=== PATIENT | female | born 1950 | race Caucasian/White ===

== ENCOUNTER 2022-05-07 13:00 | Outpatient (RCR) | payer MEDICARE, OTHER, SELFPAY ==
--- OUTSIDE RECORDS SUMMARY | 2022-04-03 11:13 | XMS_ITS | Continuity of Care Document ---
:1950 Author Care Team Providers Name Role Phone MD Mario Attending Physician MD Quinn A Primary Care Physician Allergies, Adverse Reactions, Alerts Allergen Type Severity Reaction Last Updated Verified Status Hydrocodone Allergy Mild Stomach August No Active probs 2020 Social History Smoking Status Status Start Date End Date Date of Observat ion Ex-smoker (finding) March 03 8:35am Observation Status Observation Response Date of Response History provided by Patient September 05, 2021 1:30pm Where do you live? Own home/apt September 05, 2021 1:30pm Additional Data Assigned Sex Female Problems Active Problems Medical Problem Onset Date Status Atrial fibrillation with rapid Active ventricular response Alteration in vision Active Elevated INR Active Appendicitis, acute Active Paroxysmal atrial fibrillation Active Thyroid dysfunction Active Perforated appendicitis Active Hypothyroidism Active Encounter for screening for COVID-19 Act juan a Breast cancer 2021 Active Encounter for screening for COVID-19 Act juan a Status post appendectomy Active S/P laparoscopic appendectomy Active Medications Medication Status Dose Units Route Directions Qty Days Start End Ins tructions Date Date Acetaminophen Active 500-1 MG PO Every 6 100 NO MORE THAN (Tylenol 000 Hours as 4000 MG/ DAY Extra needed Strength) 500 Mg TAB Bupropion Hcl Active 150 MG PO Daily 90 (Bupropion Hcl Sr (12 Hr)) 150 Mg TABSR Calcium/Vitam Active 1 TAB PO Twice A Day 100 in D (Calcium Carbonate/Vit schuster D) 600 Mg/200 Unit TAB Levothyroxine Active 100 MCG PO Daily Sodium Magic Active 5 ML PO Four Times March SWISH AN D SPIT Mouthwash Daily as February COM POUND IF FIRST PRODUCT NOT COVERED (Lidocaine/Be needed 2021 nadryl/Maalox 1:19pm ) (First-Mouthw concepción Blm) Blm SUSANNE Metoprolol Active 50 MG PO Twice A Day March Tartrate 2021 12:16pm Multiple Active 1 TAB PO Daily Vitamins W/ Minerals (Multivitamin ) 1 Tab TAB Ondansetron Active 4 MG PO Every 6 8 February Hcl Hours as , (Ondansetron needed 2021 Odt) 4 Mg TAB 12:54pm Pantoprazole Active 40 MG PO Daily 30 Sodium (Protonix) 40 Mg TABEC Prochlorperaz Active 10 MG PO Every 8-12 09 March PRN ine Maleate Hours as 4th, Nause a/vomiti needed for 2021 ng Nausea/Vomi 11:29am ting Rivaroxaban Active 20 MG PO Daily WITH MEAL (Xarelto) r , Mg TAB 2020 4:14pm Simvastatin Active 20 MG PO Bedtime June 03, 2015 5:06pm Tramadol Hcl Active 50 MG PO Every 6 30 Hours as needed Zinc Sulfate Active 220 MG PO Daily 100 (Zinc Sulfate (50 Mg Elemental)) 220 Mg CAP Amoxicillin/C Discontin 1 TAB PO Twice Daily lavulanate ued For 7 Days , Potassium 2021 (Amoxicillin 12:16p & Pot m Clavulanate) 875 Mg/125 Mg TAB Amoxicillin/C Discontin 1 TAB PO Twice Daily February lavulanate ued For 7 Days r , 4th, Potassium 2020 2021 (Amoxicillin 2:05pm 10:02a & Pot m Clavulanate) 875 Mg/125 Mg TAB Aspirin Discontin 81 MG OR Novemb (Ecotrin Low ued er Strength) 81 26th, Mg TAB 2020 3:45pm Atenolol Discontin 25 MG PO Three Times Novemb ued A Day er 2020 4:21pm Atenolol & Discontin 1 TAB PO Daily Chlorthalidon ued r , er e 2014, (Atenolol/Chl 3:17pm 2020 orthalidone 3:32pm 100/25) 1 Tab TAB Diltiazem Hcl Discontin 120 MG PO Daily January (Dilt-Xr) 120 ued r , , Mg CAPCR 2020 2021 4:14pm 9:07am Diphtheria/Te Discontin 0.5 ML IM Once January tanus/Acell ued , 17, Pertussis 2014 2014 (Adacel) 0.5 11:35am 12:15p Ml INJ m Flecainide Discontin 50 MG PO Twice A Day May em Acetate ued 2014, 5:15pm 2019 8:19am Hydrocortison Discontin 1 CHRISTY TOP Twice A Day May N ovemb e ued , er (Hydrocortiso 2014, ne Cream) 2.5 11:33am 2020 % CRE 3:23pm Hydroxyzine Discontin 25-50 MG PO Bedtime as May em Pamoate ued needed 2014, 11:33am 2019 8:19am Levothyroxine Discontin 112 MCG PO Daily 30 Novemb Sodium ued er (Synthroid) , 112 Mcg TAB 2020 3:30pm Metoprolol Discontin 100 MG PO Twice A Day 60 February may take an extra 50mg if sustained HR is 120 for more than Tartrate ued , 14th, an hour 2021 2021 10:02am 12:16p m Metoprolol Discontin 50 MG PO Twice A Day 60 Novemfebruary may take an extra 50mg if sustained HR is 120 for more than Tartrate ued r 30th, 4th, an hour 2020 2021 4:14pm 10:02a m Potassium Discontin 25 MEQ PO Twice Daily 60 Novembe Apri l Bicarbonate ued With Meals r 30, , (Effer-K) 25 2020 2021 Meq TAB 4:14pm 8:19am Tramadol Hcl Discontin 50 MG PO Every 6 January ued Hours as , , needed 2021 2021 9:03am 12:56p m Tramadol Hcl Discontin 50 MG PO Every 6 January ued Hours as r 30, , needed 2020 2021 6:15pm 8:19am Warfarin Discontin 5 MG PO Every Novemb Sodium ued Wednesday, er Wednesday, , , 2020 And 4:14pm Wednesday Warfarin Discontin 7.5 MG PO Every 30 Novemb Sodium ued Wednesday, er Wednesday, , And Wednesday 4:14pm Immunizations Immunization Event Date Not Given Dose Efficiency Clerk Lot Vac cine Reason Number Number Informatio n Statement (VIS) Deta il Herpes Zoster September 132011 Influenza June 112008 Influenza July 292017 Influenza July 212020 Prevnar Adult December 222015 Pneumovax Adult March 172016 Tdap January 25 SANOFI [id number] (adolescent/adul 2015 t) Medical Equipment Device Date Implanted Device Details TECNIS IOL July 03, 2020 MONTRELL: [id number] Issuing Agency: [facility] Device Id: [id number] Expiration Date: 12-18-25 Serial Number: [id number] PowerPort M.R.I. Implantable March 03, 2022 MONTRELL: [id number] Issuing Agency: [facility] Device Id: [id number] Expiration Date: 12-12-29 Lot Number: [id number] Relevant Diagnostic Tests and/or Laboratory Data Laboratory Results Test Date/Time Result Interpretation Reference Result Comment Performing Range Site White Blood March 24, 6.23 5.00-10.00 [facility] Count 2021 [address] [facility] 12:10pm [place] [address] Red Blood Count March 24, 4.33 3.90-5.03 [facility] 2021 [address] [facility] 12:10pm [facility] [address] Hemoglobin March 24, 12.7 12.0-15.5 [facility] 2021 [address] [facility] 12:10pm [place] [address] Hematocrit March 24, 38.8 34.9-44.5 [facility] Lab 2021 [address] [facility] 12:10pm [place] [address] Mean March 24, 90 82-98 [facility] Corpuscular 2021 [address] [facility] Volume 12:10pm [place] [address] Mean March 24, 29 27-34 [facility] Corpuscular 2021 [address] [facility] Hemoglobin 12:10pm [place] [address] Mean March 24, 33 32-36 [facility] Corpuscular 2021 [address] [facility] Hemoglobin 12:10pm [place] [address] Concent Platelet Count March 24, 512 150-450 [facility] 2021 [address] [facility] 12:10pm [facility] [address] RDW Coefficient March 24, 14.4 11.5-15.3 [facility] Variation 2021 [facility] [place] [address] Neutrophils (%) March 24, 60.4 50.0-70.0 [facility] (Auto) 2021 [address] [facility] 12:10pm [place] [address] Lymphocytes (%) March 24, 26.5 25.0-45.0 [facility] (Auto) 2021 [address] [facility] 12:10pm [place] [address] Monocytes (%) March 24, 10.8 0.00-11.0 [facility] (Auto) 2021 [address] [facility] 12:10pm [place] [address] Eosinophils (%) March 24, 0.8 0.0-7.0 [facility] (Auto) 2021 [address] [facility] 12:10pm [place] [address] Basophils (%) March 24, 1.3 0.0-3.0 [facility] (Auto) 2021 [address] [facility] 12:10pm [place] [address] Immature March 24, 0.2 [facility] Granulocyte % 2021 [address] [facility] (Auto) 12:10pm [facility] [address] Neutrophils # March 24, 3.77 1.70-7.00 [facility] (Auto) 2021 [address] [facility] 12:10pm [facility] [address] Lymphocytes # March 24, 1.65 0.90-2.90 [facility] (Auto) 2021 [address] [facility] 12:10pm [place] [address] Monocytes # March 24, 0.67 0.30-0.90 [facility] (Auto) 2021 [address] [facility] 12:10pm [place] [address] Eosinophils # March 24, 0.05 0.00-0.50 [facility] (Auto) 2021 [address] [facility] 12:10pm [place] [address] Basophils # March 24, 0.08 0.00-0.20 [facility] (Auto) 2021 [address] [facility] 12:10pm [place] [address] Immature March 24, 0.01 [facility] Granulocyte # 2021 [address] [facility] (Auto) 12:10pm [facility] [address] Random Glucose March 24, 91 60-115 [facility] 2021 [address] [facility] 12:10pm [place] [address] Blood Urea March 24, 16 7-30 [facility] Nitrogen 2021 [address] [facility] 12:10pm [facility] [address] Creatinine March 24, 0.8 0.5-1.5 [facility] 2021 [address] [facility] 12:10pm [place] [address] Estimated March 24, 53.3358 [facility] Creatinine 2021 0 [address] [facility] 12:10pm [facility] [address] Sodium Level March 24, 139 135-149 [facility] 2021 [address] [facility] 12:10pm [facility] [address] Potassium Level March 24, 4.1 3.6-5.1 [facility] 2021 [address] [facility] 12:10pm [facility] [address] Chloride Level March 24, 103 96-114 [facility] 2021 [address] [facility] 12:10pm [facility] [address] Carbon Dioxide March 24, 28 20-32 [facility] Level 2021 [address] [facility] 12:10pm [facility] [address] Calcium Level March 24, 9.0 8.4-10.6 [facility] 2021 [address] [facility] 12:10pm [facility] [address] Total Protein March 24, 7.1 6.0-8.3 The use of [facility] 2021 Eltrombopag, a [address] [facility] 12:10pm [place] [address] stimulant used to treat thrombocytopenia and aplastic anemia, interferes with this measurement of total protein. A 5% bias has been observed. Albumin March 24, 4.3 3.3-5.0 [facility] 2021 [address] [facility] 12:10pm [facility] [address] Total Bilirubin March 24, 0.7 0.1-1.5 [facility] 2021 [address] [facility] 12:10pm [facility] [address] Aspartate Amino March 24, 26 12-35 [facility] Transf 2021 [address] [facility] (AST/SGOT) 12:10pm [facility] [address] Alanine March 24 4-35 [facility] Aminotransferas 2021 [address] [facility] e (ALT/SGPT) 12:10pm [facility] [address] Alkaline March 24 40-150 [facility] Phosphatase 2021 [address] [facility] 12:10pm [facility] [address] Advance Directives Advance Directive Response Recorded Date/Time Does Pt have Health Care No July 17 9:48am Directive? Has patient completed a Yes March 03, 2022 8 :35am Health Care Directive? Insurance Providers Guarantor Phan Caban Address [address] [facility] [address] Contact Info. Home Phone: Payer Policy Id Coverage Id Subscriber's Subscriber Id Effective E xpiration Name Date Date Medicare [id number] Phan Caban [employer] [id number] Phan Caban Solution Plan Encounters Encounter Location(s) Arrival/Admit Date Discharge/Depart Date Provider(s) Registered [place] March 25, 2022 [facility] 6:53am Plan of Treatment Future Tests Future scheduled test information is unavailable Pending Tests Pending diagnostic test information is unavailable Future Visits Future appointment information is unavailable Referrals to Other Providers Reason for Referral Start Provider Provider Contact Provider Address Referral Date Information Pato Bingham Work Phone: AMNA DUDLEY [facility] [address] [facility] [phone] Future Procedures Future procedure information is unavailable Future Medications Future medication information is unavailable Patient Instructions Metoprolol (By mouth) Diltiazem (By mouth) Amoxicillin/Clavulanate Potassium (By [facility]) Tramadol (By mouth) Potassium Bicarbonate/Citric Acid (By [facility]) Rivaroxaban (By mouth) (Xarelto, Xarelto Starter Pack) A-fib (Atrial Fibrillation) (DC) Laparoscopic Appendectomy (DC)
[2022-04-15 08:20] LABS: Basophils Absolute Auto 0.07 K/uL (0.00-0.30); Basophils Percent Auto 1.3 % (0.0-3.0); Eosinophils Absolute Auto 0.06 K/uL (0.00-0.50); Eosinophils Percent Auto 1.1 % (0.0-7.0); Hematocrit 36.1 % (33.0-51.0); Hemoglobin* 11.7 gm/dL (12.0-16.0); Immature Granulocytes Abs Auto 0.01 K/uL (0.00-0.30); Lymphocytes Percent Auto 19.6 % (20-44); Mean Corpuscular HGB Conc 32 gm/dL (32-36); Mean Corpuscular Hemoglobin 30 pg (26-34); Mean Corpuscular Volume 92 fL (80-100); Monocytes Percent Auto 13.1 % (0.0-11.0); Neutrophils Percent Auto 64.7 % (42.0-72.0); Platelet Count* 422 K/uL (140-440); RDW Coefficient of Variation % 15.7 % (11.5-15.5); Red Blood Count 3.92 m/uL (4.00-5.20); White Blood Count* 5.56 K/uL (4.50-11.00)
[2022-04-15 08:29] LABS: Slide Review Reflex No
[2022-04-15 08:34] LABS: Chloride* 106 mmol/L (96-114); Sodium* 138 mmol/L (135-149)
[2022-04-15 08:35] LABS: Potassium* 3.8 mmol/L (3.6-5.1)
[2022-04-15 08:37] LABS: Alanine Aminotransferase* 17 U/L (4-35); Alkaline Phosphatase* 111 U/L (40-150); Aspartate Amino Transferase* 24 U/L (12-35); Bilirubin Total* 0.5 mg/dL (0.1-1.5); Blood Urea Nitrogen* 15 mg/dL (7-30); Carbon Dioxide* 25 mmol/L (20-32); Creatinine* 0.7 mg/dL (0.5-1.5); Est. Creatinine Clearance* 40.81; Estimated Glomerular Filt Rate 92.41; Glucose* 110 mg/dL (60-115); Total Protein* 6.5 g/dL (6.0-8.3)
[2022-04-15 08:38] LABS: Calcium* 8.6 mg/dL (8.4-10.6)
[2022-04-15] MEDS: 0.9 % SODIUM CHLORIDE 250 ml IV (09:30)
[2022-04-15] MEDS: PALONOSETRON 0.25 MG/5 ML inj IV (09:32)
[2022-04-15] MEDS: dexAMETHasone 20 MG in 0.9 % SODIUM CHLORIDE 100 ml 100 ML 408 MG IVPB (09:32)
[2022-04-15] MEDS: SODIUM CHLORIDE 0.9 % (FLUSH) 10 ML SYRINGE IVF (12:21)
[2022-04-15] MEDS: HEPARIN 500 UNIT/5 ML SYRINGE IVF (12:21)
[2022-04-16] MEDS: PEGFILGRASTIM 6 MG/0.6 ML SYRINGE SUBCUT (15:14)
--- NOTE | 2022-05-04 11:50 | ONC.NURNOTE ---
Authorization: User: Becka Cabral Date: 02/12/22 10:27 Type: Eligibility Determination Note... Request received from [facility] for prior authorization of Taxotere [id number], Cytoxan [id number], Aloxi [id number] and Neulasta [id number]. Patient carries Medicare as primary insurance. Per CMS.gov LCD R88731 no prior authorization is required for Taxotere, D [id number] no prior authorization is required for Cytoxan and D [id number] no prior authorization is required for Neulasta. Per CMS.gov no prior authorization is required for Aloxi. All services are based on medical necessity and follows Medicare guidelines.
[2022-05-06 09:04] LABS: Basophils Absolute Auto 0.08 K/uL (0.00-0.30); Basophils Percent Auto 1.2 % (0.0-3.0); Eosinophils Absolute Auto 0.08 K/uL (0.00-0.50); Eosinophils Percent Auto 1.2 % (0.0-7.0); Hematocrit 35.9 % (33.0-51.0); Hemoglobin* 11.6 gm/dL (12.0-16.0); Immature Granulocytes Abs Auto 0.01 K/uL (0.00-0.30); Lymphocytes Percent Auto 13.7 % (20-44); Mean Corpuscular HGB Conc 32 gm/dL (32-36); Mean Corpuscular Hemoglobin 30 pg (26-34); Mean Corpuscular Volume 94 fL (80-100); Monocytes Percent Auto 12.6 % (0.0-11.0); Neutrophils Absolute Auto 4.58 K/uL (1.7-7.0); Neutrophils Percent Auto 71.1 % (42.0-72.0); Platelet Count* 414 K/uL (140-440); RDW Coefficient of Variation % 15.6 % (11.5-15.5); Red Blood Count 3.84 m/uL (4.00-5.20); White Blood Count* 6.44 K/uL (4.50-11.00)
[2022-05-06 09:22] LABS: Albumin* 3.9 g/dL (3.3-5.0); Chloride* 106 mmol/L (96-114)
[2022-05-06 09:23] LABS: Potassium* 4.1 mmol/L (3.6-5.1); Sodium* 138 mmol/L (135-149)
[2022-05-06 09:25] LABS: Alkaline Phosphatase* 113 U/L (40-150); Aspartate Amino Transferase* 25 U/L (12-35); Bilirubin Total* 0.4 mg/dL (0.1-1.5); Blood Urea Nitrogen* 13 mg/dL (7-30); Carbon Dioxide* 25 mmol/L (20-32); Creatinine* 0.7 mg/dL (0.5-1.5); Est. Creatinine Clearance* 40.81; Estimated Glomerular Filt Rate 92 ml/min; Total Protein* 7.1 g/dL (6.0-8.3)
[2022-05-06 09:26] LABS: Alanine Aminotransferase* 17 U/L (4-35); Calcium* 8.6 mg/dL (8.4-10.6); Glucose* 106 mg/dL (60-115)
[2022-05-06] MEDS: dexAMETHasone 20 MG in 0.9 % SODIUM CHLORIDE 100 ml 100 ML 408 MG IVPB (10:27)
[2022-05-06] MEDS: PALONOSETRON 0.25 MG/5 ML inj IV (10:27)
[2022-05-06] MEDS: 0.9 % SODIUM CHLORIDE 250 ml IV (10:32)
[2022-05-06] MEDS: HEPARIN 500 UNIT/5 ML SYRINGE IVF (13:02)
[2022-05-06] MEDS: SODIUM CHLORIDE 0.9 % (FLUSH) 10 ML SYRINGE IVF (13:02)
[2022-05-07 13:42] VITALS: BP 122/72; PULSE 72; RESP 16; TEMP 36.3; O2SAT 96
[2022-05-07] MEDS: PEGFILGRASTIM 6 MG/0.6 ML SYRINGE SUBCUT (14:02)
[2022-05-08 20:01] LABS: Slide Review Reflex No
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
--- NOTE | 2022-05-29 07:12 | ONC.NURNOTE ---
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 Greenberg for work-up of her persistent cough; she recently had a CT Chest completed at [facility] that showed a few small lung nodules. At her Rad Onc appt Dr. Keys also reviewed the CT with patient and said there was not concern about the lung nodules as they are ~3mm and she has a history of smoking. Dr. Greenberg said next steps would be a pulmonology consult; pt is unsure if she will proceed with this at this time. She is using Tessalon perles with no improvement. Pt feels her cough may be more related to post-nasal drainage, because it is high up in her throat, as she is noticing she needs to clear her throat when she's lying down and her nose/eyes continue to run. She has taken Claritin/Zyrtec recently, the latter of which improved the drainage some. Reviewed with pt that she could see an ENT to further workup sinus drainage/post-nasal drip; also recommended she could try nasal sprays like Fluticasone or Afrin to see if decreasing nasal drainage improves her cough. Pt agreeable to the options discussed and will take time to decided how to proceed next.
== END 2022-05-10 23:59 | disposition home or self-care (01) ==
LOC: CCIC 13:00
PROVIDERS: Clinical Nurse Specialist; PCP Family Medicine; Visit Provider Internal Medicine Hematology & Oncology
DX: C50.919 Malignant neoplasm of unspecified site of unspecified female breast (principal); T45.1X5A Adverse effect of antineoplastic and immunosuppressive drugs, initial encounter
CPT/HCPCS: 36415; 36591; 80053; 85025; 96372; 96376; 96413; 96417; 99212; 99215; J2506; J9070; J1100; J1642; J2469; J7050; J9171

== ENCOUNTER 2022-05-14 15:42 | Emergency (ER) | payer MEDICARE, OTHER, SELFPAY ==
[2022-05-14 16:08] VITALS: BP 133/59; PULSE 87; RESP 87; TEMP 36.9; O2SAT 92; BMI 34.3
[2022-05-14] MEDS: diphenhydrAMINE 25 MG CAPSULE PO (17:07)
[2022-05-14] MEDS: dexAMETHasone 2 MG TABLET 10 MG PO (17:08)
--- NOTE | 2022-05-14 18:15 | ED_ITS ---
HPI - General Adult General Date Seen: 05/14/22 Chief complaint: Skin/Abscess/Foreign Body Stated complaint: Rash from chemotherapy Time Seen by Provider: 05/14/22 16:05 Source: patient Limitations: no limitations History of Present Illness HPI narrative: 71-year-old female presents for evaluation 2 day history of very itchy rash all over her body. This began on Wednesday, 2 days ago. It is raised red and itchy. She was seen in clinic where she was prescribed Benadryl, Claritin and triamcinolone cream. This has not been very helpful. She did take Benadryl 50 mg at bedtime last night and it did help some. Patient is getting treatment for breast cancer. She had Taxotere and Cytoxan administered 8 days ago. She did receive dexamethasone dose at that time. She had had previous Taxotere and Cytoxan without adverse reaction. No other history of allergy or skin rash problems. She is not on any new medications. She has not had any new foods. She has not any shortness of breath. She does have a chronic cough. She also has some reflux. Related Data Home Medications Medication Instructions Recorded Confirmed acetaminophen 500 mg capsule 500 mg PO Q4-6H PRN 04/14/22 05/06/22 bupropion HCl 150 mg 24 hr tablet, 150 mg PO DAILY 04/14/22 05/06/22 extended release levothyroxine 100 mcg capsule 100 mcg PO DAILY 04/14/22 05/06/22 magic mouthwash 04/14/22 05/06/22 multivitamin 1 tab PO DAILY 04/14/22 05/06/22 ondansetron 4 mg disintegrating 4 mg PO Q6H 04/14/22 05/06/22 tablet pantoprazole 40 mg tablet,delayed 40 mg PO DAILY 04/14/22 05/06/22 release rivaroxaban 20 mg tablet 20 mg PO DAILY 04/14/22 05/06/22 simvastatin 20 mg tablet 20 mg PO QPM 04/14/22 05/06/22 zinc sulfate 50 mg zinc (220 mg) 50 mg PO DAILY 04/14/22 05/06/22 capsule calcium carbonate 600 mg-vitamin 2 tab PO QDAY 04/15/22 05/06/22 D3 10 mcg (400 unit) tablet metoprolol tartrate 25 mg tablet 50 mg PO BID 04/15/22 05/06/22 tramadol 50 mg tablet 50 mg PO QDAY PRN 04/15/22 05/06/22 Allergies Allergy/AdvReac Type Severity Reaction Status Date / Time hydrocodone Allergy Mild Vomiting Verified 04/15/22 08:10 Review of Systems Narrative: Two days of rash with chronic cough and reflux. She reports otherwise generally doing well. No fevers no shortness of breath no abdominal pain or nausea. [facility] Medical History (Updated 05/14/22 @ 18:24 by Medardo Liz MD) Acute appendicitis Alteration in vision Ascending aortic aneurysm Atrial fibrillation with rapid ventricular response Depression Elevated international normalized ratio (INR) History of paroxysmal supraventricular tachycardia Hyperlipidemia Hypothyroidism Rupture of appendix Surgical History (Updated 05/14/22 @ 16:17 by Medardo Liz MD) History of cataract surgery History of discectomy History of hysterectomy History of ovarian cystectomy Status post appendectomy Status post laparoscopic appendectomy Social History Smoking Status: Former smoker Do you use any of these nicotine containing products: None How often do you have a drink containing alcohol: never How often do you have six or more drinks on one occasion: Never AUDIT-C Alcohol total score: 0 Non-prescribed substance use: denies use Exam Narrative: Exam Narrative: She is alert and appears in no obvious distress. She is observed to scratch at widely scattered raised sharply demarcated erythematous papules and patches. These involve trunk front and back both arms and both legs. Eyes normal. Oropharynx normal. Respirations are clear to auscultation. Breathing is unlabored. No wheezing. Cardiovascular: S1, S2, regular rate and rhythm. No murmur gallop or rub. Const: Vital Signs, click to edit/add: Vital Signs - 24 hr 05/14/22 16:08 Temperature 98.5 F Pulse Rate [Right Pulse Oximeter] 87 Respiratory Rate 87 H Blood Pressure [Ri ght Upper Arm] 133/59 L Pulse Oximetry 92 Oxygen Delivery Me thod Room Air Documenting provider has reviewed patient's vital signs: yes Course Course Hospital Course: She received dexamethasone 10 mg orally. With this over about an hours she had complete resolution of her hives. Vital Signs Vital signs: Initial Vital Signs Temperature 98.5 F 05/14/22 16:08 Temperature Source Temporal Artery Scan 05/14/22 16:08 Pulse Rate 87 05/14/22 16:08 Respiratory Rate 87 H 05/14/22 16:08 Blood Pressure 133/59 L 05/14/22 16:08 Blood Pressure Mean 83 05/14/22 16:08 Blood Pressure Position Sitting 05/14/22 16:08 Pulse Oximetry 92 05/14/22 16:08 Oxygen Delivery Method 05/14/22 16:08 Vital Signs Temperature 98.5 F 05/14/22 16:08 Pulse Rate 87 05/14/22 16:08 Respiratory Rate 87 H 05/14/22 16:08 Blood Pressure 133/59 L 05/14/22 16:08 Pulse Oximetry 92 05/14/22 16:08 Oxygen Delivery Method 05/14/22 16:08 Temperature 98.5 F 05/14/22 16:08 Pulse Rate 87 05/14/22 16:08 Respiratory Rate 87 H 05/14/22 16:08 Blood Pressure 133/59 L 05/14/22 16:08 Pulse Oximetry 92 05/14/22 16:08 Oxygen Delivery Method 05/14/22 16:08 Discharge Plan Discharge Clinical Impression: Allergic reaction to drug Patient Disposition: Home, Self-Care Condition: Improved Additional Instructions: Continue to take Benadryl, famotidine and Claritin or cetirizine. I will add in a steroid treatment with a Medrol Dosepak to start tomorrow morning. Call the oncology clinic tomorrow for an update. Activity Level: Activity as Tolerated Discharge Diet: Regular Prescriptions: No Action calcium carbonate-vitamin D3 600 mg-10 mcg (400 unit) tablet 2 tab PO QDAY metoprolol tartrate 25 mg tablet 50 mg PO BID tramadol 50 mg tablet 50 mg PO QDAY PRN acetaminophen 500 mg capsule 500 mg PO Q4-6H PRN bupropion HCl 150 mg tablet extended release 24 hr 150 mg PO DAILY levothyroxine 100 mcg capsule 100 mcg PO DAILY multivitamin Tablet 1 tab PO DAILY ondansetron 4 mg tablet,disintegrating 4 mg PO Q6H pantoprazole 40 mg tablet,delayed release (DR/EC) 40 mg PO DAILY rivaroxaban 20 mg tablet 20 mg PO DAILY Rx Instructions: must administer with evening meal simvastatin 20 mg tablet 20 mg PO QPM zinc sulfate 50 mg zinc (220 mg) capsule 50 mg PO DAILY magic mouthwash Follow Up/Referrals: Destiney Greenberg DO [Primary Care Provider] - Stand Alone Forms: MyHealth Info Instructions
== END 2022-05-14 18:40 | disposition home or self-care (01) ==
PROVIDERS: Emergency Provider Family Medicine; PCP Family Medicine
DX: R21 Rash and other nonspecific skin eruption (principal); T50.905A Adverse effect of unspecified drugs, medicaments and biological substances, initial encounter
CPT/HCPCS: 99283; 99284; A9270

== ENCOUNTER 2022-05-15 08:09 | Emergency (ER) | payer MEDICARE, OTHER, SELFPAY ==
[2022-05-15 08:15] VITALS: BP 123/74; PULSE 95; RESP 20; TEMP 36.4; O2SAT 97; BMI 34.3
--- NOTE | 2022-05-15 08:59 | ED.GENADULT ---
HPI - General Adult General Chief complaint: Skin/Abscess/Foreign Body Stated complaint: Rash Time Seen by Provider: 05/15/22 08:29 Source: patient Mode of arrival: ambulatory Limitations: no limitations History of Present Illness HPI narrative: 71-year-old female coming in today with continued rash. Rash started on Wednesday, 3 days ago. Located throughout her entire body and it migrates. It is pruritic. She was told by her cancer physician that it certainly could be a reaction to her chemotherapy. She was started on Benadryl, Claritin. She was seen in the ER yesterday and given dexamethasone which helped or rash go away but as soon as she got home she states, the rash returned. She was also given a prescription for a Medrol Dosepak which she has not picked up yet. She denies any systemic symptoms-no shortness of breath, difficulty breathing or swallowing, no swelling of her lips or the back of her mouth. She does not feel like her throat is closing. She does not cough. She denies any fevers or chills. She is concerned today because the rash does not seem to go away completely. Of note patient is receiving chemotherapy for breast cancer, her last treatment was 9 days ago. Related Data Home Medications Medication Instructions Recorded Confirmed acetaminophen 500 mg capsule 500 mg PO Q4-6H PRN 04/14/22 05/06/22 bupropion HCl 150 mg 24 hr tablet, 150 mg PO DAILY 04/14/22 05/06/22 extended release levothyroxine 100 mcg capsule 100 mcg PO DAILY 04/14/22 05/06/22 magic mouthwash 04/14/22 05/06/22 multivitamin 1 tab PO DAILY 04/14/22 05/06/22 ondansetron 4 mg disintegrating 4 mg PO Q6H 04/14/22 05/06/22 tablet pantoprazole 40 mg tablet,delayed 40 mg PO DAILY 04/14/22 05/06/22 release rivaroxaban 20 mg tablet 20 mg PO DAILY 04/14/22 05/06/22 simvastatin 20 mg tablet 20 mg PO QPM 04/14/22 05/06/22 zinc sulfate 50 mg zinc (220 mg) 50 mg PO DAILY 04/14/22 05/06/22 capsule calcium carbonate 600 mg-vitamin 2 tab PO QDAY 04/15/22 05/06/22 D3 10 mcg (400 unit) tablet metoprolol tartrate 25 mg tablet 50 mg PO BID 04/15/22 05/06/22 tramadol 50 mg tablet 50 mg PO QDAY PRN 04/15/22 05/06/22 Allergies Allergy/AdvReac Type Severity Reaction Status Date / Time hydrocodone Allergy Mild Vomiting Verified 04/15/22 08:10 Review of Systems Status of ROS: Reports: 10 or more systems reviewed and unremarkable except as noted in History and below [facility] Medical History Acute appendicitis Alteration in vision Ascending aortic aneurysm Atrial fibrillation with rapid ventricular response Depression Elevated international normalized ratio (INR) History of paroxysmal supraventricular tachycardia Hyperlipidemia Hypothyroidism Rupture of appendix Surgical History History of cataract surgery History of discectomy History of hysterectomy History of ovarian cystectomy Status post appendectomy Status post laparoscopic appendectomy Social History Smoking Status: Former smoker Do you use any of these nicotine containing products: None How often do you have a drink containing alcohol: never How often do you have six or more drinks on one occasion: Never AUDIT-C Alcohol total score: 0 Non-prescribed substance use: denies use Exam Narrative: Exam Narrative: Overweight, well-developed patient in no acute distress. Alert and oriented. Answers questions appropriately. Mood and affect are appropriate. Thoughts are goal oriented and rational. No tangential or magical thinking noted. Patient speaks in full sentences without needing to catch her breath. HEENT: Normocephalic atraumatic. Pupils are equally round reactive to light. Extraocular muscles are intact. Conjunctivae are moist without any icterus noted. Moist mucous membranes. Posterior pharynx is normal without any swelling. Lips have normal appearance. Tongue is normal. Lungs: Clear to auscultation bilaterally no wheezes rhonchi or rales are appreciated. Patient takes deep breaths without any discomfort. Skin: Well perfused. She has erythematous papules scattered throughout the body. She has areas of confluence over the upper arms. The rash is across her chest wall, arms, neck, face, scalp. She has a few dots on her legs. While we were having a conversation the rash did appear to get better, the area of confluence on her arm got significantly smaller, the rash across her chest abated some as well. Const: Vital Signs, click to edit/add: Vital Signs - 24 hr 05/15/22 08:15 Temperature 97.6 F Pulse Rate [Right Pulse Oximeter] 95 Respiratory Rate 20 Blood Pressure [Ri ght Upper Arm] 123/74 Pulse Oximetry 97 Oxygen Delivery Me thod Room Air Course Vital Signs Vital signs: Initial Vital Signs Temperature 97.6 F 05/15/22 08:15 Temperature Source Temporal Artery Scan 05/15/22 08:15 Pulse Rate 95 05/15/22 08:15 Pulse Rhythm 05/15/22 08:15 Respiratory Rate 20 05/15/22 08:15 Blood Pressure 123/74 05/15/22 08:15 Blood Pressure Mean 90 05/15/22 08:15 Blood Pressure Position Sitting 05/15/22 08:15 Pulse Oximetry 97 05/15/22 08:15 Oxygen Delivery Method 05/15/22 08:15 Vital Signs Temperature 97.6 F 05/15/22 08:15 Pulse Rate 95 05/15/22 08:15 Respiratory Rate 20 05/15/22 08:15 Blood Pressure 123/74 05/15/22 08:15 Pulse Oximetry 97 05/15/22 08:15 Oxygen Delivery Method 05/15/22 08:15 Temperature 97.6 F 05/15/22 08:15 Pulse Rate 95 05/15/22 08:15 Respiratory Rate 20 05/15/22 08:15 Blood Pressure 123/74 05/15/22 08:15 Pulse Oximetry 97 05/15/22 08:15 Oxygen Delivery Method 05/15/22 08:15 Medical Decision Making MDM Narrative Medical decision making narrative: Rash-consistent with hives, potential reaction to chemotherapy. We discussed that these rashes can come and go. We discussed worrisome symptoms including swelling of the face, lips, tongue. We discussed returning to the ER she has difficulty breathing or swallowing. We discussed picking up her Medrol Dosepak and starting that today, continue Benadryl and start Zyrtec. Patient was agreeable with everything we discussed had no other questions. Medical Records Medical records reviewed: Yes I reviewed the patient's medical records Discharge Plan Discharge Clinical Impression: Allergic reaction to drug, Rash Patient Disposition: Home, Self-Care Condition: Stable Additional Instructions: Start Medrol Dosepak today. Start daily Zyrtec in the morning. Continue Benadryl 25 mg up to every 6 hours as needed. Follow-up with primary care or your oncologist if you are not getting better over the next week. Return to the ER if you develop swelling of your lips or tongue, or if you have any difficulty breathing or swallowing. Prescriptions: No Action calcium carbonate-vitamin D3 600 mg-10 mcg (400 unit) tablet 2 tab PO QDAY metoprolol tartrate 25 mg tablet 50 mg PO BID tramadol 50 mg tablet 50 mg PO QDAY PRN acetaminophen 500 mg capsule 500 mg PO Q4-6H PRN bupropion HCl 150 mg tablet extended release 24 hr 150 mg PO DAILY levothyroxine 100 mcg capsule 100 mcg PO DAILY multivitamin Tablet 1 tab PO DAILY ondansetron 4 mg tablet,disintegrating 4 mg PO Q6H pantoprazole 40 mg tablet,delayed release (DR/EC) 40 mg PO DAILY rivaroxaban 20 mg tablet 20 mg PO DAILY Rx Instructions: must administer with evening meal simvastatin 20 mg tablet 20 mg PO QPM zinc sulfate 50 mg zinc (220 mg) capsule 50 mg PO DAILY magic mouthwash Follow Up/Referrals: Destiney Greenberg DO [Primary Care Provider] - Stand Alone Forms: [facility] Info Instructions
== END 2022-05-15 09:25 | disposition home or self-care (01) ==
PROVIDERS: Emergency Provider Family Medicine; PCP Family Medicine
DX: R21 Rash and other nonspecific skin eruption (principal); T50.905A Adverse effect of unspecified drugs, medicaments and biological substances, initial encounter
CPT/HCPCS: 99283

== ENCOUNTER 2022-07-01 10:18 | Outpatient (RCR) | payer MEDICARE, OTHER, SELFPAY | END 2022-12-28 23:59 | disposition home or self-care (01) | LOC: CCIC 10:18 | PROVIDERS: PCP Family Medicine; Visit Provider Internal Medicine Hematology & Oncology | DX: C50.912 Malignant neoplasm of unspecified site of left female breast (principal); Z17.0 Estrogen receptor positive status [ER+]; R91.1 Solitary pulmonary nodule | CPT/HCPCS: 99212; 99215 ==

== ENCOUNTER 2022-08-27 12:50 | Outpatient (CLI) | payer MEDICARE, OTHER, SELFPAY ==
--- NOTE | 2022-08-27 13:00 | CRLHL7_ITS ---
For Patients: As a result of the Century Cures Act, medical imaging exams and procedure reports are released immediately into your electronic medical record. You may view this report before your referring provider. If you have questions, please contact your health care provider. DXA BONE MINERAL DENSITY STUDY Current height (in): 63.0. Weight (lb): 190.0. Menopause age: 35. Ethnicity: White. Reason for exam: Menopausal syndrome. 1. Have you had a previous hip or vertebral fracture? No. 2. Have you had any fractures during your adult life which did not result from significant trauma (e.g., auto accident)? No. 3. Did either of your parents have a hip fracture? No. 4. Do you smoke? No. 5. Have you ever taken Glucocorticoids? No. 6. Do you have rheumatoid arthritis? No. 7. Do you have secondary osteoporosis? No. 8. Do you drink 3 or more alcoholic drinks per day? No. 9. Are you being treated for osteoporosis? No. 10. Have you ever taken any of the following medications: Actonel, Evista, Fosamax, Miacalcin, Reclast, Boniva, Forteo, HRT (i.e. estrogen/hormone therapy), Protelos, Prolia, Vitamin D, Calcium, other ??? please specify. ANSWER: No. 11. Do you have any of the following medical conditions: Anorexia or bulimia, asthma or emphysema, end stage renal disease, hyperparathyroidism, any seizure disorders, cancer, inflammatory bowel diseases, hysterectomy, other ??? please specify. ANSWER: Yes, cancer, hysterectomy. 12. What was your maximum height (inches)? 64. 13. Do you perform weight bearing exercise regularly? No. 14. Do you regularly consume dairy products? Yes. 15. Do you drink caffeinated beverages? Yes. If female: 16. At what age did your period start? 12. 17. Are you premenopausal? No. 18. How many full term pregnancies have you had? 1. 19. Have you ever missed your period for more than 6 months in a row (not including or menopause)? No. TECHNIQUE: Bone mineral density study was performed using the Re[employer]. FINDINGS: The results of the study expressed as bone mineral density (BMD) are as follows: Lumbar spine L1 to L3: BMD: 0.963 g/cm2. T-score: -0.5. Z-score: 1.7. Neck Left: BMD: 0.800 g/cm2. T-score: -0.4. Z-score: 1.4. Right: BMD: 0.845 g/cm2. T-score: -0.0. Z-score: 1.9. Total Left: BMD: 0.970 g/cm2. T-score: 0.2. Z-score: 1.8. Right: BMD: 0.979 g/cm2. T-score: 0.3. Z-score: 1.9. IMPRESSION: Normal bone density. Yfn Ball M.D. Diagnostic Radiologist [email or web address] Transcribed: 10:56 a.m. DW/Dictated by: Yfn Ball MD @ 08/28/2022 9:24:00 AM (Electronically Signed)
== END 2022-08-27 12:51 | disposition home or self-care (01) ==
LOC: RAD 12:50
PROVIDERS: PCP Family Medicine; Visit Provider Internal Medicine Hematology & Oncology
DX: N95.1 Menopausal and female climacteric states (principal); Z78.0 Asymptomatic menopausal state
CPT/HCPCS: 77080

== ENCOUNTER 2023-01-14 08:55 | Outpatient (CLI) | payer MEDICARE, OTHER, SELFPAY ==
--- NOTE | 2023-01-14 09:00 | CRLHL7_ITS ---
For Patients: As a result of the Century Cures Act, medical imaging exams and procedure reports are released immediately into your electronic medical record. You may view this report before your referring provider. If you have questions, please contact your health care provider. Indication: Malignant neoplasm of breast hx of breast cancer Technique: Noncontrast CT chest Please note that all CT scans at this facility use dose modulation, iterative reconstruction, and/or weight-based dosing when appropriate to reduce radiation dose to as low as reasonably achievable. Comparison: 05/27/2022 Findings: Postop changes left breast lumpectomy again noted. No adenopathy. No pleural or pericardial effusion. The adrenal glands are normal. Subcentimeter cyst in the spleen. Normal noncontrast enhanced liver. Small hiatal hernia. No fracture or suspicious osseous lesion. Small nodular densities in the right lower lobe are similar, measuring up to 4 millimeters. No infiltrate or edema. No pneumothorax. Impression: Stable exam. Unchanged small pulmonary nodules in the right lower lobe measuring up to 4 millimeters. No adenopathy. Please note that all CT scans at this facility use dose modulation, iterative reconstruction, and/or weight-based dosing when appropriate to reduce radiation dose to as low as reasonably achievable. Dictated by Yfn Ball MD @ 01/14/2023 1:18:01 PM (Electronically Signed)
== END 2023-01-14 08:56 | disposition home or self-care (01) ==
LOC: CT 08:57
PROVIDERS: PCP Family Medicine; Visit Provider Nurse Practitioner Family
DX: C50.919 Malignant neoplasm of unspecified site of unspecified female breast (principal); R91.8 Other nonspecific abnormal finding of lung field
CPT/HCPCS: 71250

== ENCOUNTER 2023-02-18 09:30 | Outpatient (RCR) | payer MEDICARE, OTHER, SELFPAY ==
--- NOTE | 2022-11-16 16:34 | ONC.NURNOTE ---
Addendum entered by Landy Coe 12/08/22 13:46: Call to patient to see how she is feeling since holding her Anastrozole. Patient states I'm not missing that medication. She reports still having mild joint stiffness but mostly resolved. Patient wonders if she could try a different aromatase inhibitor. I assured patient that we would review this with the [facility] team and call her back with their recommendation. She requests that if we do try a new medication, that we call only a 30 day supply into the [facility] pharmacy in [place] vs. a 90 day supply to her mail order pharmacy. Addendum entered by Landy Coe 11/20/22 14:21: Patient instructed to hold Anastrozole for a few weeks. BCN will check in with patient at that time and see if her symptoms have improved. Patient verbalizes understanding. Original Note: Pt called reporting extensive joint achiness in primarily bilateral hands, but also shoulders and generally. The pain is waking her at night; ice works better than heat. Tylenol also provides slight improvement. Pt began Anastrazole ~ 6 wks ago and believes this is the cause. BNN to review with Dr. Heena Maria 11/19 when next in office. Pt agreeable to this plan.
--- NOTE | 2022-12-15 10:55 | ONC.NURNOTE ---
Reviewed pt's side effects from anastrazole with Yoselin Jensen CNP; switched pt to Exemestane. 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 This monthly expensive is too high for pt, as she is also on Xarelto with a challening co-pay, despite being in a co-pay assistance program. Updated Yoselin Jensen CNP; Exemestane dc'd. Letrozole ordered. Pt to call if any further concerns with co-pay or side effects.
--- NOTE | 2022-12-22 14:27 | ONC.NURNOTE ---
Patient called to report that she is doing well with the Letrozole. She notes a significant improvement in her energy, hot flashes and joint pain. Patient will continue and discuss further with Dr. Machado at her follow up appointment next month.
--- NOTE | 2023-02-03 07:48 | ONC.NURNOTE ---
Pt called today to reschedule appt with Dr. Machado due to a fever and sore throat today. Pt rescheduled for 02/18/23.
== END 2023-03-29 23:59 | disposition home or self-care (01) ==
LOC: CCIC 09:30
PROVIDERS: PCP Family Medicine; Visit Provider Internal Medicine Hematology & Oncology
DX: C50.912 Malignant neoplasm of unspecified site of left female breast (principal); Z17.0 Estrogen receptor positive status [ER+]; Z79.811 Long term (current) use of aromatase inhibitors; I48.91 Unspecified atrial fibrillation; Z79.01 Long term (current) use of anticoagulants
CPT/HCPCS: 99212; 99214; 99215

== ENCOUNTER 2023-07-05 09:16 | Outpatient (CLI) | payer MEDICARE, SELFPAY | END 2023-07-05 09:17 | disposition home or self-care (01) | PROVIDERS: PCP Family Medicine; Visit Provider Internal Medicine | DX: Z00.00 Encounter for general adult medical examination without abnormal findings (principal); E07.9 Disorder of thyroid, unspecified; E78.5 Hyperlipidemia, unspecified; E03.9 Hypothyroidism, unspecified; R79.1 Abnormal coagulation profile | CPT/HCPCS: 80053; 80061; 84443 ==

== ENCOUNTER 2023-07-30 07:15 | Outpatient (CLI) | payer MEDICARE, OTHER, SELFPAY ==
--- NOTE | 2023-07-30 08:27 | P.ANES_ITS ---
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
== END 2023-07-30 07:16 | disposition home or self-care (01) ==
LOC: OP CLINIC 07:15
PROVIDERS: PCP Family Medicine; Visit Provider Internal Medicine
DX: R13.10 Dysphagia, unspecified (principal); K44.9 Diaphragmatic hernia without obstruction or gangrene; R19.8 Other specified symptoms and signs involving the digestive system and abdomen
CPT/HCPCS: 00731; 43239; 88305; 99100; J2704; J3490

== ENCOUNTER 2023-08-25 10:19 | Outpatient (CLI) | payer MEDICARE, SELFPAY ==
--- NOTE | 2023-08-25 10:45 | CRLHL7_ITS ---
For Patients: As a result of the Century Cures Act, medical imaging exams and procedure reports are released immediately into your electronic medical record. You may view this report before your referring provider. If you have questions, please contact your health care provider. BILATERAL SCREENING MAMMOGRAM WITH COMPUTER-AIDED DETECTION TECHNIQUE: CC and MLO views were obtained. These mammographic images have been obtained using full-field digital technique. These mammographic images were interpreted with the benefit of computer-aided detection. COMPARISON FILM: 12/23/21, 12/30/21, 01/27/22. FINDINGS: The breasts are almost entirely fatty IMPRESSION: There is no radiographic evidence for malignancy. ASSESSMENT: BI-RADS Category 2: Benign RECOMMENDATION: Routine screening mammogram in 1 year. A lay language report of this examination will be provided to the patient. Yfn Ball M.D. Diagnostic Radiologist [email or web address] LOYDA/Dictated by: Yfn Ball MD @ 08/25/2023 11:07:00 AM (Electronically Signed)
== END 2023-08-25 10:20 | disposition home or self-care (01) ==
PROVIDERS: PCP Internal Medicine; Visit Provider Internal Medicine Hematology & Oncology
DX: Z12.31 Encounter for screening mammogram for malignant neoplasm of breast (principal)
CPT/HCPCS: 77067

== ENCOUNTER 2023-10-14 08:29 | Outpatient (CLI) | payer MEDICARE, OTHER, SELFPAY ==
--- OUTSIDE RECORDS SUMMARY | 2023-10-20 11:58 | XMS_ITS | Clinical Summary ---
Author Name Unknown Organization [facility] Address [place], [place] [address] Care Team Providers Care Warping Mill Operator Name Role Phone Destiney Greenberg DO Primary Care Provider [phone] Allergies Active Allergy Reactions Criticality Noted Date Comments Codeine Nausea And Vomiting 04/22/2007 tylenolo with codeine Meperidine Nausea And Vomiting 04/22/2007 Hydrocodone-Acetaminophe n Nausea Only 02/25/2015 Nausea Morphine Nausea And Vomiting 04/22/2007 Oxycodone-Aspirin Nausea And Vomiting 7 Sodium Phenylacetate *Unknown 02/25/2015 Thiopental Nausea And Vomiting 11/14/2009 Medications Medication Sig Dispensed Refills Start Date End Date Status CALCIUM + VITAMIN D 600 MG-200 UNIT TAB 2 tab by mouth daily 0 04/22/2007 Active MULTIPLE VITAMIN TAB take 1 tablet by oral route once daily with food 0 07/25/2007 Active zinc 50 mg tablet Take 1 Tablet (50 mg) by mouth once daily. 0 02/17/2021 Active medication order composerIndications: BUFFY (obstructive sleep apnea),Snoring,Chron ic atrial fibrillation (HC) 1 mandibular advancement device to be used during sleep 1 Device 0 04/09/2021 Active medication order composerIndications: BUFFY (obstructive sleep apnea),Snoring 1 mandibular advancement device to be used during sleep 1 Device 0 04/09/2021 Active traMADoL (ULTRAM) 50 mg tablet Take 50 mg by mouth every 6 hours if needed. 0 01/27/2022 Active prochlorperazine (COMPAZINE) 10 mg tablet TAKE 1 TABLET BY MOUTH EVERY 8-12 HOURS NEEDED FOR NAUSEA/VOMITING. 0 02/11/2022 Active Lidocaine Viscous 2 % liquid 0 03/26/2022 Active triamcinolone (ARISTOCORT; KENALOG) 0.1 % creamIndications:Con tact dermatitis, unspecified contact dermatitis type, unspecified trigger Apply topically to affected area(s) 3 times daily. 80 g 2 05/13/2022 Active aspirin 81 mg cap Take 81 mg by mouth. 0 Active benzonatate (TESSALON) 100 mg capsuleIndications:C ough, unspecified type Take 1 Capsule (100 mg) by mouth 3 times daily if needed for Cough. 21 Capsule 0 05/27/2022 Active anastrozole (ARIMIDEX) 1 mg tablet Take 1 mg by mouth once daily. 0 07/30/2022 Active CPAPIndications:Obst ructive sleep apnea Auto-Titrating Cpap, pressure 5-16 cmw, supplies needed are water chamber, tubing, heated tubing, non-disposable filters, nasal mask, headgear, full face mask, disposable filter, mask cushion replacement, nasal pillow replacement, full face mask cushion, chinstrap and other ([id number]). 1 Each 08/25/2022 Active rivaroxaban (Xarelto) 20 mg tabletIndications:Ch ronic atrial fibrillation (HC) Take 1 Tablet (20 mg) by mouth once daily with evening meal. 90 Tablet 3 10/19/2022 Active buPROPion (WELLBUTRIN SR) 150 mg Sustained-Release tabletIndications:Ma alexys depressive disorder, recurrent episode, mild (HC) Take 1 Tablet (150 mg) by mouth every morning. 90 Tablet 3 10/19/2022 Active levothyroxine (SYNTHROID) 100 mcg tabletIndications:Hy pothyroidism, postablative Take 1 Tablet (100 mcg) by mouth before breakfast. 90 Tablet 10/19/2022 Active pantoprazole (PROTONIX) 40 mg delayed-release tabletIndications:La ryngopharyngeal reflux (LPR) Take 1 Tablet (40 mg) by mouth once daily. 90 Tablet 3 10/19/2022 Active simvastatin (ZOCOR) 20 mg tabletIndications:Hy perlipidemia, unspecified hyperlipidemia type Take 1 Tablet (20 mg) by mouth at bedtime. 90 Tablet 3 10/19/2022 Active metoprolol tartrate (LOPRESSOR) 25 mg tabletIndications:Pa roxysmal atrial fibrillation (HC),HTN (hypertension) Take 2 Tablets (50 mg) by mouth two times daily. Pt is due for cardiology follow up for further refills 360 Tablet 0 11/06/2022 Active fluticasone (50 mcg per actuation) nasal solution (FLONASE)Indications :Nasal congestion Inhale 1 [place] into affected nostril(s) once daily. 16 g 3 05/25/2023 Active CPAPIndications:Obst ructive sleep apnea CPAP machine for home use at pressure: 5-16 cmw , Heated humidifier x 1 q 5 yr, Humidifier chamber x 1 q 6 mo, nasal mask x1 q 3mos, with cushion x 2 q mo, Heated tubing x 1 q 3 mo, Headgear x 1 q 6 mo, Filters: Disposable x 2 q mo non-disposable filters x1 q 6mo, Length of Need: 99 months, Frequency of use: Daily 1 Each 11 05/25/2023 Active Active Problems Problem Noted Date Diagnosed Date Alteration in vision 01/20/2022 Elevated INR 01/20/2022 Perforated appendicitis 01/20/2022 Status post appendectomy 01/20/2022 Atrial fibrillation with rapid ventricular respo nse 02/17/2021 SVT (supraventricular tachycardia) 12/26/2019 Sleep disturbance 12/26/2019 Ascending aortic aneurysm 12/26/2019 Prediabetes 11/21/2019 Meniscus degeneration, right 08/09/2018 Primary osteoarthritis of right knee 08/09/2018 Chronic pain of right knee 07/28/2018 Paroxysmal atrial fibrillation 11/06/2017 Advanced directives, counseling/discussion 11/05 Overview: Will check for copy Hyperlipidemia with target LDL less than 130 Overview: Diagnosis updated by automated process. Provider to review and confirm. HTN, goal below 140/90 02/25/2015 Seasonal depression 02/25/2015 Tachycardia 02/25/2015 Hypothyroidism 11/10/2007 Overview: 01/24/19 - mCi I-131 ablation of thyroid after a 35% RAIU Palpitations 08/26/2007 Personal history of tobacco use, presenting hazards to health 04/22/2007 Major depressive disorder, recurrent episode, mi ld 04/22/2007 Resolved Problems Problem Noted Date Diagnosed Date Resolved Date Anticoagulation monitoring, DOAC 09/25/2021 03/15/2023 Anticoagulation monitoring, INR range 2-3 08/15/2021 09/25/2021 Anticoagulation monitoring, DOAC 02/19/2021 08/15/2021 Anticoagulation monitoring, INR range 2-3 02/18/2021 02/19/2021 Warfarin anticoagulation 02/17/202109/2021 Encounters Date Type Department Care Team Description 08/06/2023 Telephone [facility] [address] [place] [address] Lani Laird, DAISHA 08/06/2023 Telephone [facility] [address] [place] [address] Destiney Greenberg, DO Error-please disregard (A user error has taken place: encounter opened in error, closed for administrative reasons ) 07/30/2023 Lab Requisition [facility] [phone] Darek Rizzo MD from Last 3 Months Immunizations Name Administration Dates Next Due Influenza, High-dose Inactivated 07/29/2018 Influenza, High-dose Quadrivalent Inactivated Influenza, IIV3 (Age >=3 years) 07/03/2009 Influenza, Inactivated AIIV4 (Age 65+ Years) Preserv Free 07/23/2020 Pneumococcal Poly,23-Valent (Pneumovax) 03/17/20 17 Pneumococcal conj 13-Valent (Prevnar 13) 016 Tdap 01/25/2015 Zoster (Zostavax-ZVL, live) 09/13/2012 Family History Medical History Relation Name Comments Cancer-colon Brother Diabetes Father Heart Disease Father Cancer Mother Anesthesia Problem No Family History Cancer-breast No Family History Relation Name Status Comments Brother Father (Age 76) chf, CVA , DM Mother (Age 64) mi Social History Tobacco Use Types Packs/Day Years Used Date Smoking Tobacco: Former Cigarettes 0.3 12 0 11/11/2006 - 11/11/2018 Smokeless Tobacco: Never Tobacco Cessation:Counseling Given: Yes Alcohol Use Standard Drinks/Week Comments Not Currently 0 (1 standard drink = 0.6 oz pur e alcohol) PHQ-2 Answer Date Recorded PHQ-2 TOTAL SCORE 0 03/19/2022 Social Connections Answer Date Recorded Frequency of Communication with Friends and Fami ly Not on file 01/25/2023 Financial Resource Strain Answer Date R ecorded Difficulty of Paying Living Expenses 3 01/20/2022 Difficulty of Paying Living Expenses Not on file 01/20/2022 Food Insecurity Answer Date Recorded Worried About Running Out of Food in the Last Ye ar 1 01/20/2022 Transportation Needs Answer Date Record ed Lack of Transportation (Medical) 1 01/20/2022 Housing Stability Answer Date Recorded Unable to Pay for Housing in the Last Year 1 01/20/2022 Sex and Gender Information Value Date Recorded Sex Assigned at Not on file Gender Identity Not on file Sexual Orientation Not on file Obstetrics History Last Filed Vital Signs Vital Sign Reading Time Taken Comments Blood Pressure 110/62 06/23/2022 11:16 AM CDT Pulse 64 06/23/2022 11:16 AM CDT Temperature 36.9 ??C (98.5 ??F) 06/08/2022 1:47 PM CD T Respiratory Rate 18 02/05/2021 9:43 AM CDT Oxygen Saturation 96% 06/22/2022 12:36 PM CDT Inhaled Oxygen Concentration - - Weight 102.5 kg (226 lb) 02/27/2022 11:44 AM CDT Height 158.1 cm (5' 2.25) 02/27/2022 11:44 AM C DT Body Mass Index 41 02/27/2022 11:44 AM CDT Plan of Treatment Health Maintenance Due Date Last Done Comments COVID-19 vaccine series (#1) 1955 Zoster (shingles) series for age 50+ (1 of 2) 11/08/2012 09/13/2012 DEXA/DXA scan for age 65+ 2015 11/04/2009 Medicare Wellness for age 65+ 2015 Colonoscopy through age 75 07/05/2020 07/05/2015, BMI (ht and wt on same day) for age 18+ 02/27/2023 02/27/2022, 2021, 04/09/2021 Depression screening for age 12+ 03/17/2023 03/17/2022, 06/27/2020, 10/24/2018, Additional history exists Influenza for age 65+ 06/11/2023 07/21/2021 , 07/23/2020, 07/29/2018, Additional history exists Mammogram for age 45-75 12/22/2023 12/22/19 23, 01/27/2022, 12/23/2021, Additional history exists Lipids for age 45-75 11/21/2024 11/21/2019, 10/17/2018, 05/12/2007 Tetanus booster 01/25/2025 01/25/2015 Tdap Completed 01/25/2015 Pneumococcal series for age 65+ Completed 7, 12/23/2015 Hepatitis C screening for ag e 18-79 Completed 02/17/2021 Procedures Procedure Name Priority Date/Time Associated Diagnosis Comments LAB TRACKING EVENT Routine 07/30/2023 8: 14 AM CDT PATH TISSUE EXAM Routine 07/30/2023 8:14 AM CDT from Last 3 Months Results * LAB TRACKING EVENT (07/30/2023 8:14 AM CDT) Other (Other) Client Collect / Unknown 07/30/2023 8:14 AM CDT 07/30/2023 7:58 PM CDT Darek Rizzo MD LAB BILL ONLY Performing Organization Address City/State/[facility] Co de Phone Number [facility] [address] [place] [phone], * PATH TISSUE EXAM (07/30/2023 8:14 AM CDT) Case Report Pathology Report ?Case: [id number] ? Authorizing Provider: ??Darek Rizzo MD ?Collected: ? 07/30/2023 0814 ? Ordering Location: ? [facility] ?Received: ?07/30/2023 2018 ? Pathologist: ? Alyse Hickman, DO ? Specimens: ?? A) - Duodenum Biopsy ? B) - Stomach Biopsy ? C) - Esophageal Biopsy ? D) - Esophageal Biopsy ? 08/02/2023 8:38 AM CDT [facility]TR[facility] LABORATORY Final Diagnosis A) DUODENUM, BIOPSY: 1. Normal duodenal mucosa 2. Negative for celiac disease and other enteropathy B) STOMACH, BIOPSY: 1. Normal gastric antral and body mucosae 2. Negative for Helicobacter C) ESOPHAGUS, DISTAL, BIOPSY: 1. Inflammatory changes consistent with reflux esophagitis 2. Negative for eosinophilic esophagitis 3. Negative for columnar mucosa D) ESOPHAGUS, MID, BIOPSY: 1. Normal esophageal squamous mucosa 2. Negative for reflux changes and eosinophilic esophagitis 3. Negative for columnar mucosa 08/02/2023 8:38 AM T [facility] [employer] Clinical Information The patient is a 72-year-old with symptoms of dysphagia. Upper endoscopy examination revealed no gross lesions within the duodenum, stomach, or esophagus. 08/02/2023 8:38 AM T [facility] Gross Description A) Received in formalin is a lewis mucosal fragment measuring 4 mm in greatest dimension, which is entirely submitted in one cassette. It is labeled with the patient's name and designated duodenum biopsy. B) Received in formalin are 4 lewis mucosal fragments averaging 5 mm in greatest dimension, which are entirely submitted in one cassette. It is labeled with the patient's name and designated stomach biopsy. C) Received in formalin is a lewis mucosal fragment measuring 7 mm in greatest dimension, which is entirely submitted in one cassette. It is labeled with the patient's name and designated distal esophagus biopsy. D) Received in formalin are 2 lewis mucosal fragments averaging 5 mm in greatest dimension, which are entirely submitted in one cassette. It is labeled with the patient's name and designated mid esophagus biopsy. Ramses Guzman 07/30/2023 8:24 PM 08/02/2023 8:38 AM T [facility] [employer] [facility] Microscopic Description The final diagnosis is based on microscopic examination of appropriate sections of all specimens. 08/02/2023 8:38 AM T [facility] [employer] [facility] Additional Information Interpreted at [facility], Central Laboratory - [address], [place] [address] 08/02/2023 8:38 AM [facility] Other (Duodenum Biopsy) 07/30/2023 8:14 AM CDT 07/30/2023 8:18 PM CDT Specimen (specimen) (Stomach Biopsy) 07/30/2023 8:14 AM CDT 07/30/2023 8:18 PM CDT Specimen (specimen) (Esophageal Biopsy) 07/30/2023 8:14 AM CDT 07/30/2023 8:18 PM CDT Specimen (specimen) (Esophageal Biopsy) 07/30/2023 8:14 AM CDT 07/30/2023 8:18 PM CDT Darek Rizzo MD PATHOLOGY/CYTOLOGY [employer] [facility] [address] [place] [id number], from Last 3 Months Advance Directives Latest Code Status on File Code Status Date Activated Date Inactivated Comments Full Code 07/05/2015 7:04 AM 07/05/2015 12:25 PM Code Status History Code Status Date Activated Date Inactivated Comments Full Code 11/15/2009 7:09 AM 11/15/2009 12:31 PM Care Teams Warping Mill Operator Relationship Specialty Start Date End Date Destiney Greenberg DO [address] [place] [address] PCP - General Internal Medicine 02/07/21
--- OUTSIDE RECORDS SUMMARY | 2023-10-20 11:58 | XMS_ITS ---
Author Name Unknown Organization [facility] Address [address] [place] [address] Care Team Providers Care Concrete Plant Laborer Name Role Phone Unavailable Primary Care Provider Unavailabl e Active Problems Problem Noted Date Diagnosed Date Malignant Neoplasm Of Breast Lower Outer Quadrant Female Left 05/13/2022 Cancer Staging:Pathologic stage from 01/27/2022:Stage IA(pT1c, pN0(sn), cM0, G3, ER+, AK+, HER2-, Oncotype DX score: 32) - Unsigned Current Oncology Plans No current plan information found. Past Plans No past plan information found. Radiation Treatments * Plan Last Treated On Elapsed Days Fractions Treated Prescribed Fraction Dose Prescribed Total Dose [id number] 06/04/2022 10 4 of 4 250 cGy 1,000 cGy [id number] 05/29/2022 4 5 of 5 520 cGy 2,600 cGy Reference Point Last Treated On Elapsed Days Session Dose Total Dose [id number] 06/04/2022 10 250 cGy 3,600 cGy
--- OUTSIDE RECORDS SUMMARY | 2023-10-20 11:58 | XMS_ITS ---
Author Name Unknown Organization [facility] Address [address] [place] [address] Care Team Providers Care Technical Services Manager Name Role Phone Unavailable Unavailable Unavailable Surgery Details Not on file Complications Check Surgery Details section. Procedure Estimated Blood Loss Check Surgery Details section. Procedure Findings Check Surgery Details section. Procedure Specimens Taken Check Surgery Details section.
--- OUTSIDE RECORDS SUMMARY | 2023-10-20 11:58 | XMS_ITS | Clinical Summary ---
Author Name Unknown Organization [facility] Address [address] [place] [address] Care Team Providers Care Hand Carver Name Role Phone Unavailable Primary Care Provider Unavailabl e Source Comments Patient records contain information from all sites at [facility]. For routine questions regarding patient records, call [phone] during business hours, M-F 8:00 AM - 5:00 PM Central Time. Record requests for emergency care only can be directed to [phone] at any time.[facility] Allergies Active Allergy Reactions Criticality Noted Date Comments Codeine Nausea And Vomiting 04/22/2007 tylenolo with codeine tylenolo with codeine Hydrocodone-Acetaminop hen Nausea Only 02/25/2015 Nausea Nausea Meperidine Nausea And Vomiting 04/22/2007 Morphine Nausea And Vomiting 04/22/2007 Nausea Oxycodone-Aspirin Nausea And Vomiting 7 Thiopental Nausea And Vomiting 11/14/2009 Medications Medication Sig Dispensed Refills Start Date End Date Status aspirin 81 mg capsule Take 81 mg by mouth daily. 0 Active metoprolol tartrate (LOPRESSOR) 25 mg tablet Take 50 mg by mouth. 0 04/25/2022 Active benzonatate (TESSALON PERLES) 100 mg capsule Take 100 mg by mouth. 0 05/13/2022 Active buPROPion (WELLBUTRIN SR) 150 mg 12 hr tablet Take 1 tablet by mouth every morning. 0 05/19/2018 Active famotidine (PEPCID) 20 mg tablet Take 20 mg by mouth. 0 05/13/2022 Active dextromethorphan-guai FENesin (ROBITUSSIN-DM) 10-100 mg/5 mL syrup TAKE 10 ML BY MOUTH EVERY 4 HOURS IF NEEDED FOR COUGH FOR UP TO 4 DAYS. 0 05/13/2022 Active levothyroxine (SYNTHROID, LEVOTHROID) 100 mcg tablet Take 1 tablet by mouth every morning before breakfast. 0 05/06/2022 Active methylPREDNISolone (MEDROL DOSEPAK) 4 mg tablet TAKE 6 TABLETS ON DAY 1 DIRECTED ON PACKAGE AND DECREASE BY 1 TAB EACH DAY FOR A TOTAL OF 6 DAYS 0 05/15/2022 Active omeprazole (PriLOSEC) [address] capsule Take 20 mg by mouth. 0 01/31/2018 Active pantoprazole (PROTONIX) 40 mg EC tablet Take 1 tablet by mouth daily. 0 12/16/2021 Active prochlorperazine (COMPAZINE) 10 mg tablet TAKE 1 TABLET BY MOUTH EVERY 8-12 HOURS NEEDED FOR NAUSEA/VOMITING. 0 02/11/2022 Active rivaroxaban (XARELTO) 20 mg tablet Take by mouth. 0 05/08/2022 Active simvastatin (ZOCOR) 20 mg tablet Take 1 tablet by mouth at bedtime. 0 07/25/2018 Active triamcinolone (KENALOG) 0.1 % cream Apply topically. 0 05/13/2022 Active zinc chelated 50 mg tablet tablet Take 50 mg by mouth. 0 02/17/2021 Active traMADoL (ULTRAM) 50 mg tablet Take 50 mg by mouth. 0 01/27/2022 Active Active Problems Problem Noted Date Diagnosed Date Malignant Neoplasm Of Breast Lower Outer Quadrant Female Left 05/13/2022 Cancer Staging:Pathologic stage from 01/27/2022:Stage IA(pT1c, pN0(sn), cM0, G3, ER+, [place]+, HER2-, Oncotype DX score: 32) - Unsigned Immunizations Name Administration Dates Next Due Influenza, Unspecified 07/03/2009 Family History Medical History Relation Name Comments Colon cancer Brother Uterine cancer Mother Relation Name Status Comments Brother Mother Social History Tobacco Use Types Packs/Day Years Used Date Smoking Tobacco: Former Cigarettes 20 Tobacco Cessation:Counseling Given: Not Answered Comments:Casual smoker for 15-20 years, approximately once per week, 2-3 cigarettes. Alcohol Use Standard Drinks/Week Comments Not Currently 0 (1 standard drink = 0.6 oz pur e alcohol) Nutrition Answer Date Recorded Nutrition: EVOO Fat Source Unknown 05/08 Nutrition: Servings of Fruits/Vegetables per Day Not on file 05/08/2022 Dental Answer Date Recorded Dental: Regular Dentist Unknown 05/08/20 Sex and Gender Information Value Date Recorded Sex Assigned at Not on file Gender Identity Not on file Sexual Orientation Not on file Last Filed Vital Signs Vital Sign Reading Time Taken Comments Blood Pressure 131/62 05/18/2022 8:54 AM CDT Pulse 67 05/18/2022 8:54 AM CDT Temperature 36.2 ??C (97.2 ??F) 05/18/2022 8:54 AM CD T Respiratory Rate - - Oxygen Saturation - - Inhaled Oxygen Concentration - - Weight 101 kg (223 lb 8.7 oz) 05/27/2022 3:36 PM CDT Height - - Body Mass Index - - Plan of Treatment Health Maintenance Due Date Last Done Comments Bone Density Scan (Osteoporo sis Screen) 1950 CT Colonography 1950 Cologuard 1950 Colonoscopy 1950 Colorectal Cancer Surveillance 1950 Hepatitis C Screening 1950 COVID-19 Vaccine (#1) 1955 Zoster Vaccines (1 of 2) 11/08/2012 09/13/2012 Depression Screening (Annual PHQ-2) 10/11/2022 Fall Risk Screen (Annual) 10/11/2022 Fasting Glucose for Diabetes Screening 11/21/2022 11/21/2019, 10/17/2018 Influenza Vaccine (#1) 2023 , 07/21/2021, 07/23/2020, Additional history exists Thyroid Stimulating Hormone (TSH) test for thyroid function 07/28/2023 07/28/2022, 07/24/2021, 07/23/2020, Additional history exists Mammogram 08/25/2024 08/25/2023, 12/09, 01/27/2022, Additional history exists DTaP,Tdap,and Td Vaccines (2 - Td or Tdap) 01/25/2025 01/25/2015 Pneumococcal vaccine (65+ years) Completed 03/17/20 17, 12/23/2015 Procedures Procedure Name Priority Date/Time Associated Diagnosis Comments OUTSIDE MG MAMMOGRAM Routine 08/25/2023 10:50 AM SENIOR ACCOUNT EXECUTIVE from Last 3 Months Results * MM screening mammo BI-Outside Mammogram (08/25/2023 10:50 AM SENIOR ACCOUNT EXECUTIVE) Narrative [facility] - 09/03/2023 12:28 AM SENIOR ACCOUNT EXECUTIVE This order has been created and auto-finalized to support the import of outside images. If available, original interpretation can be found on the Media Tab in Chart Review, in Document Viewer, or as an image in QREADS. If a re-interpretation or overread is required please follow defined workflow. ?? Provider Not In System IMG BI PROCEDURES [facility] NA from Last 3 Months
--- OUTSIDE RECORDS SUMMARY | 2023-10-20 11:58 | XMS_ITS | Referral Summary ---
Author Name Unknown Organization [facility] Address [address] [place] [address] Care Team Providers Care Double End Sewer Name Role Phone Unavailable Primary Care Provider Unavailabl e Source Comments Patient records contain information from all sites at [facility]. For routine questions regarding patient records, call [phone] during business hours, M-F 8:00 AM - 5:00 PM Central Time. Record requests for emergency care only can be directed to [phone] at any time.[facility] Allergies Active Allergy Reactions Criticality Noted Date [...] from 01/27/2022:Stage IA(pT1c, pN0(sn), cM0, G3, ER+, CT+, HER2-, Oncotype DX score: 32) - Unsigned Immunizations Name Administration Dates Next Due Influenza, Unspecified 07/03/2009 Social History Tobacco Use Types Packs/Day Years [...] Date Recorded Dental: Regular Dentist Unknown 05/08/20 22 Sex and Gender Information Value Date Recorded [...] Mass Index - - Plan of Treatment Not on file Procedures Procedure Name Priority Date/Time Associated Diagnosis Comments OUTSIDE MG MAMMOGRAM Routine 08/25/2023 10:50 AM RETAIL CLIENT SOLUTIONS ANALYST from Last 3 Months Results * MM screening mammo BI-Outside Mammogram (08/25/2023 10:50 AM RETAIL CLIENT SOLUTIONS ANALYST) Narrative [facility] - 09/03/2023 12:28 AM RETAIL CLIENT SOLUTIONS ANALYST This order has been created and auto-finalized [...]
== END 2023-10-14 08:30 | disposition home or self-care (01) ==
LOC: NFLDREF 10-20 11:56
PROVIDERS: PCP Internal Medicine; Referring Provider Internal Medicine; Visit Provider Physician Assistant
DX: R35.0 Frequency of micturition (principal); N39.0 Urinary tract infection, site not specified
CPT/HCPCS: 87086; 87186

== ENCOUNTER 2023-11-24 08:42 | Outpatient (CLI) | payer MEDICARE, OTHER, SELFPAY ==
--- OUTSIDE RECORDS SUMMARY | 2023-11-24 08:44 | XMS_ITS | Clinical Summary ---
Author Name Unknown Organization [facility] Address [address] [place] [address] Care Team Providers Care Operations Scheduler Name Role Phone Unavailable Primary Care Provider Unavailabl e Source Comments Patient records contain information from all sites at [facility]. For routine questions regarding patient records, call [phone] during business hours, M-F 8:00 AM - 5:00 PM Central Time. Record requests for emergency care only can be directed to [phone] at any time.[facility] Allergies Active Allergy Reactions Criticality [...] from 01/27/2022:Stage IA(pT1c, pN0(sn), cM0, G3, ER+, [place]+, HER2-, Oncotype DX score: 32) - Unsigned [...] Zoster Vaccines (1 of 2) 11/08/2012 09/13/2012 Fasting Glucose for Diabetes Screening 11/21/2022 11/21/2019, 10/17/2018 Influenza Vaccine (#1) 2023 , 07/21/2021, 07/23/2020, Additional history exists Thyroid Stimulating Hormone (TSH) test for thyroid function 07/28/2023 07/28/2022, 07/24/2021, 07/23/2020, Additional history exists Depression Screening (Annual PHQ-2) 10/11/2023 Fall Risk Screen (Annual) 10/11/2023 Mammogram 08/25/2024 08/25/2023, 12/09, 01/27/2022, Additional history exists DTaP,Tdap,and Td Vaccines (2 - Td or Tdap) 01/25/2025 01/25/2015 Pneumococcal vaccine (65+ years) Completed 03/17/20 17, 12/23/2015 Procedures Procedure Name Priority Date/Time Associated Diagnosis Comments OUTSIDE MG MAMMOGRAM Routine 08/25/2023 10:50 AM ADMINISTRATIVE SUPPORT ASSOCIATE from Last 3 Months Results * MM screening mammo BI-Outside Mammogram (08/25/2023 10:50 AM ADMINISTRATIVE SUPPORT ASSOCIATE) Narrative [facility] - 09/03/2023 12:28 AM ADMINISTRATIVE SUPPORT ASSOCIATE This order has been created and auto-finalized [...]
--- OUTSIDE RECORDS SUMMARY | 2023-11-24 08:45 | XMS_ITS | Clinical Summary ---
Author Name Unknown Organization [facility] Address [place], [place] [address] Care Team Providers Care Plastic Parts Fabricator Trimmer Name Role Phone Destiney Greenberg DO Primary Care Provider [phone] Allergies Active Allergy Reactions Criticality Noted Date [...] cushion, chinstrap and other (A7044). 1 Each 11 08/25/2022 Active rivaroxaban (Xarelto) 20 mg tabletIndications:Ch [...] nasal solution (FLONASE)Indications :Nasal congestion Inhale 1 [place] into affected nostril(s) once daily. 16 g [...] Tachycardia 02/25/2015 Hypothyroidism 11/10/2007 Overview: 01/24/19 - 15 mCi I-131 ablation of thyroid after a [...] Encounters Date Type Department Care Team Description 11/09/2023 Telephone [facility] [address] [place], [place] [id number] Lani Laird, ARCHEOLOGY PROFESSOR Pharmacist Medication Management (Needs new CPAP machine.) 11/08/2023 Telephone [facility] [address] [facility] [address] [place] [address] Bobby Johnson MD Atrial Fibrillation from Last 3 Months Immunizations Name Administration [...] 02/27/2022 11:44 AM CDT Plan of Treatment Upcoming Encounters Date Type Department Care Team (Late st Contact Info) Description 01/11/2024 9:00 AM CDT Office Visit [facility] [address] [place] [address] Bobby Johnson MD [address] [facility] [address] [place] [address] Health Maintenance Due Date Last Done Comments [...] screening for ag e 18-79 Completed 02/17/2021 Advance Directives Latest Code Status on File Code Status Date Activated Date Inactivated Comments Full Code 07/05/2015 7:04 AM 07/05/2015 12:25 PM Code Status History Code Status Date Activated Date Inactivated Comments Full Code 11/15/2009 7:09 AM 11/15/2009 12:31 PM Care Teams Plastic Parts Fabricator Trimmer Relationship Specialty Start Date End Date Destiney Greenberg DO [address] [place] [address] PCP - General Internal Medicine 02/07/21
--- OUTSIDE RECORDS SUMMARY | 2023-11-24 08:45 | XMS_ITS | Referral Summary ---
Author Name Unknown Organization [facility] Address [address] [place] [address] Care Team Providers Care Anesthesiologist Name Role Phone Unavailable Primary Care Provider Unavailabl e Source Comments Patient records contain information from all sites at [facility]. For routine questions regarding patient records, call [phone] during business hours, M-F 8:00 AM - 5:00 PM Central Time. Record requests for emergency care only can be directed to [phone] at any time.[facility] Allergies Active Allergy Reactions Criticality [...] from 01/27/2022:Stage IA(pT1c, pN0(sn), cM0, G3, ER+, [place]+, HER2-, Oncotype DX score: 32) - Unsigned [...] OUTSIDE MG MAMMOGRAM Routine 08/25/2023 10:50 AM CUSTOMER SOLUTIONS REPRESENTATIVE from Last 3 Months Results * MM screening mammo BI-Outside Mammogram (08/25/2023 10:50 AM CUSTOMER SOLUTIONS REPRESENTATIVE) Narrative [facility] - 09/03/2023 12:28 AM CUSTOMER SOLUTIONS REPRESENTATIVE This order has been created and auto-finalized [...]
--- OUTSIDE RECORDS SUMMARY | 2023-11-24 08:45 | XMS_ITS ---
Author Name Unknown Organization [facility] Address [address] [place] [address] Care Team Providers Care Air Sealing Technician Name Role Phone Unavailable Unavailable Unavailable Surgery Details Not on file Complications Check Surgery Details section. Procedure Estimated Blood Loss Check Surgery Details section. Procedure Findings Check Surgery Details section. Procedure Specimens Taken Check Surgery Details section.
--- OUTSIDE RECORDS SUMMARY | 2023-11-24 08:45 | XMS_ITS ---
Author Name Unknown Organization [facility] Address [address] [place] [address] Care Team Providers Care Setter Out Name Role Phone Unavailable Primary Care Provider Unavailabl e Active Problems Problem Noted Date Diagnosed Date Malignant Neoplasm Of Breast Lower Outer Quadrant Female Left 05/13/2022 Cancer Staging:Pathologic stage from 01/27/2022:Stage IA(pT1c, pN0(sn), cM0, G3, ER+, [place]+, HER2-, Oncotype DX score: 32) - Unsigned Current Oncology Plans No current plan information found. Past Plans No past plan information found. Radiation Treatments * Plan Last Treated On Elapsed Days Fractions Treated Prescribed Fraction Dose Prescribed Total Dose [id number] 06/04/2022 10 4 of 4 250 cGy 1,000 cGy [id number] 05/29/2022 4 5 of 5 520 cGy 2,600 cGy Reference Point Last Treated On Elapsed Days Session Dose Total Dose [id number] 06/04/2022 10 250 cGy 3,600 cGy
--- NOTE | 2023-11-24 09:00 | CT_ITS ---
[facility] [address] [facility] [address] Phone:?[phone] Fax:?[phone] Referring Physician Information: KARMA Feng [facility] [address] Phone:?[phone] Fax:?[phone] Patient:?Clementina Mooney D.O.B:?1950 Sex:?Female Phone:?[phone] [facility] MRN:?[id number] Exam Date:?11/24/2023 EXAM: CT CHEST WITH CONTRAST CLINICAL INFORMATION: Abnormal lung findings, monitor lung nodules, rule out breast cancer recurrence or new lung malignancy TECHNICAL INFORMATION: Helical axial images were obtained at 5 mm slice thickness through the chest with intravenous contrast of 75 mL of Isovue-370, which was well tolerated. Coronal reformatted images were completed. COMPARISON: CT chest 01/14/2023 INTERPRETATION: The neck base is clear. No axillary lymphadenopathy. Left axillary clips are noted. No mediastinal or hilar lymphadenopathy. Stable postsurgical changes in the left breast region. Normal heart size. Normal caliber thoracic aorta. Minimal coronary artery atherosclerosis. No pericardial effusion. Bibasilar atelectasis. A stable 3 mm nodule in the right lower lobe (series 3 image 39). A few additional previously visualized nodules in the right lower lobe are less conspicuous on this exam. A stable tiny subpleural nodule measuring 3 mm in the left upper lobe (series 3 image 23). A stable 3 mm nodule in the left upper lobe (series 3 image 24). No new lung nodules. Central airways are clear. No pleural effusion or pneumothorax. Images of the upper abdomen are unremarkable. No suspicious osseous findings. Multilevel degenerative changes in the spine. CONCLUSION: * A few stable small nodules measuring up to 3 mm. A few previously visualized nodules in the right lower lobe are less conspicuous on this exam. No new or enlarging nodules. * Stable postsurgical changes in the left breast/axillary regions. [facility] is committed to minimizing radiation exposure while maintaining high-quality CT images. Technologists adjust the mA and/or kV according to each patient's size to optimize dose. Since we began voluntarily reporting to the [employer]'s Dose Index Registry, our average CT doses have been consistently lower than the national average. Electronically signed on 11/25/2023 10:02:00 AM by Jim Tanner D.O
[2023-11-24 09:28] LABS: Creatinine* 0.7 mg/dL (0.5-1.5); Estimated Glomerular Filt Rate 92 ml/min
== END 2023-11-24 08:43 | disposition home or self-care (01) ==
LOC: CT 08:43
PROVIDERS: PCP Internal Medicine; Visit Provider Physician Assistant
DX: R91.8 Other nonspecific abnormal finding of lung field (principal); Z87.891 Personal history of nicotine dependence
CPT/HCPCS: 36415; 71260; 82565; Q9967

== ENCOUNTER 2023-12-07 10:30 | Outpatient (RCR) | payer MEDICARE, OTHER, SELFPAY ==
--- NOTE | 2023-08-26 15:13 | ONC.NURNOTE ---
Left message with pt stating Aury Boles PA-C reviewed screening mammogram, and plan is to repeat in 6 months.
--- NOTE | 2023-11-26 10:31 | ONC.NURNOTE ---
Patient informed that KEYONNA Tijerina reviewed her chest CT and the previously noted lung nodules are stable. Will plan to repeat in 9 months. Patient verbalizes understanding.
== END 2024-01-29 23:59 | disposition home or self-care (01) ==
LOC: CCIC 10:30
PROVIDERS: PCP Internal Medicine; Visit Provider Internal Medicine Hematology & Oncology
DX: C50.912 Malignant neoplasm of unspecified site of left female breast (principal); Z17.0 Estrogen receptor positive status [ER+]; Z79.811 Long term (current) use of aromatase inhibitors; I48.91 Unspecified atrial fibrillation; Z79.01 Long term (current) use of anticoagulants; R91.8 Other nonspecific abnormal finding of lung field
CPT/HCPCS: 99212; 99214; 99215; G0463

== ENCOUNTER 2024-04-12 13:14 | Outpatient (CLI) | payer MEDICARE, OTHER, SELFPAY ==
--- OUTSIDE RECORDS SUMMARY | 2024-04-15 10:28 | XMS_ITS | Referral Summary ---
Author Organization [facility] Address [address] [place] [address] Care Team Providers Care Hydramatic Specialist Name Role Phone Unavailable Primary Care Provider Unavailabl e Source Comments Patient records contain information from all sites at [facility]. For routine questions regarding patient records, call [phone] during business hours, M-F 8:00 AM - 5:00 PM Central Time. Record requests for emergency care only can be directed to [phone] at any time.[facility] Allergies Active Allergy Reactions Criticality Noted [...] capsule Take 81 mg by mouth daily. Active metoprolol tartrate (LOPRESSOR) 25 mg tablet Take 50 mg by mouth. 04/25/2022 Active benzonatate (TESSALON PERLES) 100 mg capsule Take 100 mg by mouth. 05/13/2022 Active buPROPion (WELLBUTRIN SR) 150 mg 12 hr tablet Take 1 tablet by mouth every morning. 05/19/2018 Active famotidine (PEPCID) 20 mg tablet Take 20 mg by mouth. 05/13/2022 Active dextromethorphan-guai FENesin (ROBITUSSIN-DM) 10-100 mg/5 mL syrup TAKE 10 ML BY MOUTH EVERY 4 HOURS IF NEEDED FOR COUGH FOR UP TO 4 DAYS. 05/13/2022 Active levothyroxine (SYNTHROID, LEVOTHROID) 100 mcg tablet Take 1 tablet by mouth every morning before breakfast. 05/06/2022 Active methylPREDNISolone (MEDROL DOSEPAK) 4 mg tablet TAKE 6 TABLETS ON DAY 1 DIRECTED ON PACKAGE AND DECREASE BY 1 TAB EACH DAY FOR A TOTAL OF 6 DAYS 05/15/2022 Active omeprazole (PriLOSEC) [address] capsule Take 20 mg by mouth. 01/31/2018 Active pantoprazole (PROTONIX) 40 mg EC tablet Take 1 tablet by mouth daily. 12/16/2021 Active prochlorperazine (COMPAZINE) 10 mg tablet TAKE 1 TABLET BY MOUTH EVERY 8-12 HOURS NEEDED FOR NAUSEA/VOMITING. 02/11/2022 Active rivaroxaban (XARELTO) 20 mg tablet Take by mouth. 05/08/2022 Active simvastatin (ZOCOR) 20 mg tablet Take 1 tablet by mouth at bedtime. 07/25/2018 Active triamcinolone (KENALOG) 0.1 % cream Apply topically. 05/13/2022 Active zinc chelated 50 mg tablet tablet Take 50 mg by mouth. 02/17/2021 Active traMADoL (ULTRAM) 50 mg tablet Take 50 mg by mouth. 01/27/2022 Active Active Problems Problem Noted Date Diagnosed Date Malignant Neoplasm Of Breast Lower Outer Quadrant Female Left 05/13/2022 Cancer Staging:Pathologic stage from 01/27/2022:Stage IA(pT1c, pN0(sn), cM0, G3, ER+, [place]+, HER2-, Oncotype DX score: 32) - Unsigned Immunizations Name Administration Dates Next Due Influenza, Unspecified 07/03/2009 Social History Tobacco Use Types Packs/Day Years Used Date Smoking Tobacco: Former Cigarettes Tobacco Cessation:Counseling Given: Not Answered Comments:Casual smoker [...] OUTSIDE MG MAMMOGRAM Routine 08/25/2023 10:50 AM DOUBLE CUTTER EXTI THYROID-STIMULATING HORMONE-SENSITIVE (S-TSH), S Routine 07/28/2022 9:38 AM CDT EXTI BASIC METABOLIC PANEL, S/P Routine 11/21/2019 9:40 AM DOUBLE CUTTER from Last 3 Months or Most Recently Relevant to Health Maintenance Results * MM screening mammo BI-Outside Mammogram (08/25/2023 10:50 AM DOUBLE CUTTER) Narrative [facility] - 09/03/2023 12:28 AM DOUBLE CUTTER This order has been created and auto-finalized to support the import of outside images. If available, original interpretation can be found on the Media Tab in Chart Review, in Document Viewer, or as an image in QREADS. If a re-interpretation or overread is required please follow defined workflow. ?? Provider Not In System IMG BI PROCEDURES [facility] NA from Last 3 Months or Most Recently Relevant to Health Maintenance
--- OUTSIDE RECORDS SUMMARY | 2024-04-15 10:28 | XMS_ITS | Clinical Summary ---
Author Organization [facility] Address [address] [place] [address] Care Team Providers Care Women'S Studies Lecturer Name Role Phone Unavailable Primary Care Provider Unavailabl e Source Comments Patient records contain information from all sites at [facility]. For routine questions regarding patient records, call [phone] during business hours, M-F 8:00 AM - 5:00 PM Central Time. Record requests for emergency care only can be directed to [phone] at any time.[facility] Allergies Active Allergy Reactions Criticality Noted Date [...] Glucose for Diabetes Screening 11/21/2022 11/21/2019, 10/17/2018 Thyroid Stimulating Hormone (TSH) test for thyroid function 07/28/2023 07/28/2022, 07/24/2021, 07/23/2020, Additional history exists Depression Screening (Annual PHQ-2) 10/11/2023 Fall Risk Screen (Annual) 10/11/2023 Influenza Vaccine (#1) 2024 2, 07/21/2021, 07/23/2020, Additional history exists Mammogram 08/25/2024 08/25/2023, 12/09, 01/27/2022, Additional history exists DTaP,Tdap,and Td Vaccines (2 - Td or Tdap) 01/25/2025 01/25/2015 Pneumococcal vaccine (65+ years) Completed 03/17/20 17, 12/23/2015 Procedures Procedure Name Priority Date/Time Associated Diagnosis Comments OUTSIDE MG MAMMOGRAM Routine 08/25/2023 10:50 AM SCIENTIFIC ARTIST EXTI THYROID-STIMULATING HORMONE-SENSITIVE (S-TSH), S Routine 07/28/2022 9:38 AM CDT EXTI BASIC METABOLIC PANEL, S/P Routine 11/21/2019 9:40 AM SCIENTIFIC ARTIST from Last 3 Months or Most Recently Relevant to Health Maintenance Results * MM screening mammo BI-Outside Mammogram (08/25/2023 10:50 AM SCIENTIFIC ARTIST) Narrative [facility] - 09/03/2023 12:28 AM SCIENTIFIC ARTIST This order has been created and auto-finalized [...]
--- OUTSIDE RECORDS SUMMARY | 2024-04-15 10:28 | XMS_ITS ---
Author Organization [facility] Address [address] [place] [address] Care Team Providers Care House Piping Inspector Name Role Phone Unavailable Primary Care Provider Unavailabl e Active Problems Problem Noted Date Diagnosed Date Malignant Neoplasm Of Breast Lower Outer Quadrant Female Left 05/13/2022 Cancer Staging:Pathologic stage from 01/27/2022:Stage IA(pT1c, pN0(sn), cM0, G3, ER+, [place]+, HER2-, Oncotype DX score: 32) - Unsigned Current Oncology Plans No current plan information found. Past Plans No past plan information found. Radiation Treatments * Plan Last Treated On Elapsed Days Fractions Treated Prescribed Fraction Dose Prescribed Total Dose [id number] 06/04/2022 10 4 of 4 250 cGy 1,000 cGy [id number] 05/29/2022 4 5 of 5 520 cGy 2,600 cGy Reference Point Last Treated On Elapsed Days Session Dose Total Dose [id number] 06/04/2022 10 250 cGy 3,600 cGy
--- OUTSIDE RECORDS SUMMARY | 2024-04-15 10:28 | XMS_ITS | Clinical Summary ---
Author Organization [facility] Address [place], [place] [address] Care Team Providers Care Asbestos Siding Mechanic Name Role Phone Destiney Greenberg DO Primary Care Provider [phone] Allergies Active Allergy Reactions Criticality Noted Date [...] to be used during sleep 1 Device 04/09/2021 Active medication order composerIndications: BUFFY (obstructive sleep apnea),Snoring 1 mandibular advancement device to be used during sleep 1 Device 04/09/2021 Active anastrozole (ARIMIDEX) 1 mg tablet Take 1 mg by mouth once daily. 07/30/2022 Active rivaroxaban (Xarelto) 20 mg tabletIndications:Ch ronic atrial fibrillation (HC) Take 1 Tablet (20 mg) by mouth once daily with evening meal. 90 Tablet 3 10/19/2022 Active buPROPion (WELLBUTRIN SR) 150 mg Sustained-Release tabletIndications:Sunil reardon depressive disorder, recurrent episode, mild (HC) Take 1 Tablet (150 mg) by mouth every morning. 90 Tablet 3 10/19/2022 Active levothyroxine (SYNTHROID) 100 mcg tabletIndications:Hy pothyroidism, postablative Take 1 Tablet (100 mcg) by mouth before breakfast. 90 Tablet 3 10/19/2022 Active pantoprazole (PROTONIX) 40 mg delayed-release [...] follow up for further refills 360 Tablet 11/06/2022 Active CPAPIndications:Obst ructive sleep apnea CPAP machine [...] months, Frequency of use: Daily 1 Each 05/25/2023 Active CPAPIndications:Obst ructive sleep apnea Auto-Titrating Cpap, pressure 5-16 cmw, supplies needed are water chamber, tubing, heated tubing, non-disposable filters, nasal mask, headgear, full face mask, disposable filter, mask cushion replacement, nasal pillow replacement, full face mask cushion, chinstrap and other ([id number]). 1 Each 02/16/2024 Active Active Problems Problem Noted Date Diagnosed Date Persistent atrial fibrillation 01/11/2024 Alteration in vision 01/20/2022 Elevated INR 01/20/2022 [...] Encounters Date Type Department Care Team Description 03/10/2024 9:00 AM CDT Ancillary Procedure [facility] [place] [facility] [address] [place] [address] 03/10/2024 Telephone [facility] [place] [address] [facility] [address] [place] [phone] Bere Johnson MD Results 03/10/2024 Travel 02/16/2024 10:30 AM CDT Phone Office Visit [facility] [address] [place] [address] Lani Laird, WELL CONTROL INSTRUCTOR Phone Visit 02/01/2024 Telephone [facility] [address] [place] [address] Lani Laird, WELL CONTROL INSTRUCTOR Testing from Last 3 Months Immunizations Name Administration [...] Sign Reading Time Taken Comments Blood Pressure 135/75 01/11/2024 9:06 AM CDT Pulse 62 01/11/2024 9:06 AM CDT Temperature 36.9 ??C (98.5 ??F) 06/08/2022 1:47 PM CD T Respiratory Rate 18 02/05/2021 9:43 AM CDT Oxygen Saturation 97% 01/11/2024 9:06 AM CDT Inhaled Oxygen Concentration - - Weight [...] 03/17/2023 03/17/2022, 06/27/2020, 10/24/2018, Additional history exists Mammogram for age 45-75 12/22/2023 12/22/19 23, 01/27/2022, 12/23/2021, Additional history exists Influenza for age 65+ 06/11/2024 07/21/2021 , 07/23/2020, 07/29/2018, Additional history exists Lipids for age 45-75 11/21/2024 11/21/2019, 10/17/2018, 05/12/2007 Tetanus booster 01/25/2025 01/25/2015 Tdap Completed 01/25/2015 Pneumococcal series for age 65+ Completed 7, 12/23/2015 Hepatitis C screening for ag e 18-79 Completed 02/17/2021 Procedures Procedure Name Priority Date/Time Associated Diagnosis Comments ECHO TTE COMPLETE W CONTRAST Routine 03/10/2024 10:15 AM CDT Persistent atrial fibrillation (HC) Chemotherapy follow-up examination XR MAMMO ELIZABETH BILAT SCREEN Routine 12/21/2022 9:19 AM CDT Visit for screening mammogram ANTI HCV Routine 02/17/2021 1:52 PM CDT Need for hepatitis C screening test LIPID PANEL W REFLEX MEASURED LDL Routine 11/21/2019 9:40 AM INSIDE WIREMAN Hyperlipidemia, unspecified hyperlipidemia type COLONOSCOPY 07/05/2015 8:01 AM CDT XR DXA BONE DENSITY 2 SITES AXIAL Routine 11/04/2009 3:40 PM INSIDE WIREMAN Screening from Last 3 Months or Most Recently Relevant to Health Maintenance Results * ECHO TTE COMPLETE W CONTRAST (03/10/2024 10:15 AM CDT) EJECTION FRACTION 65 % PEAK TR VELOCITY 1.7 m/s LVEDD 4.3 cm Anatomical Region Laterality Modality Ultrasound 03/10/2024 9:21 AM CDT Narrative 03/10/2024 11:35 AM CDT ECHOCARDIOGRAM CLEMENTINA CABAN ? Accession#: ?? [id number] : ?1950 73 years Study Date: ?? 03/10/2024 9:21:22 AM Gender: F ?BP: ? 135/75 mmHg Height: 157.00 cm ?BSA: ?2.00 m? ? ? Weight: 102.00 kg ?Tech: ? MSR ? Referring MD: BERE JOHNSON Site: ? [facility] Reading Location: Mobile Echo Patient Location: Outpatient. Procedure: 2D w/ Contrast, Color Doppler and Spectral Doppler. Indication for study: Persistent atrial fibrillation (HC); Chemotherapy follow- up examination Cardiac Rhythm: Normal sinus.Study quality: Technically limited. Final Impressions: 1. Technically limited exam. 2. Normal left ventricular size, mildly increased wall thickness, normal global systolic function, calculated EF of 65 %. 3. Right ventricular cavity size is normal, global systolic RV function is normal. 4. No significant valve disease detected. Chamber Sizes and Function Normal left ventricular size, mildly increased wall thickness, normal global systolic function, calculated EF of 65 %. No definite resting regional wall motion abnormality seen. Left atrial size is normal. Right ventricular cavity size is normal, global systolic RV function is normal. The right atrium is not well visualized. The pulmonary artery is not well visualized. The sinus of Valsalva is normal sized. The ascending aorta is normal sized. Valves, RV Pressures and Diastolic Function The aortic valve is normal in structure and trileaflet, no stenosis and no regurgitation. The mitral valve is normal in structure, no mitral regurgitation. Spectral Doppler shows Grade 1 pattern of LV diastolic filling. The tricuspid valve is normal in structure. Tricuspid regurgitation is trace regurgitation. The tricuspid regurgitant velocity is 1.7 m/s, the estimated right ventricular systolic pressure is 11 mmHg plus right atrial pressure. The pulmonic valve is not well visualized. Unable to determine pulmonary regurgitation. Masses, Effusion, Shunts There is no pericardial effusion. The inferior vena cava is not well visualized, respiratory size variation not well visualized. No left to right shunting was detected by limited color flow Doppler interrogation of the interatrial septum. MEASUREMENTS AND CALCULATIONS 2-D Measurements and LV Function: LVID (d) 4.3 cm Planimetered EF 65 % LVID (s) 2.5 cm LV FS% (2D) ? 41 % IVS (d) ??1.2 cm LVOT diameter ?? 2.1 cm LVPW (d) 1.2 cm HR ?62 bpm Ao Sinus 2.8 cm Asc Ao ?? 3.7 cm Diastology: Mitral ?Tissue Doppler E Peak 0.5 m/s ??e', Septum ? 0.07 m/s A Peak 0.7 m/s ??e', Lateral ?0.08 m/s E/A ?0.7 ?E/e' Average ?? 6.35 DT ? 220 msec Mitral Valve: MVA ?3.4 cm? ? ? MV P 1/2 64 msec Tricuspid Valve and estimated PA pressures: TR Vmax 1.7 m/s TR maxG 11 mmHg Contrast documentation: 6ml ml diluted Definity, lot #[id number], [facility]# [id number] was administered peripherally to enhance visualization of all left ventricular segments. . This study was interpreted by an [facility] accredited facility. ??Final ?? Procedure Note Monique Cobos MD - 03/10/2024 ECHOCARDIOGRAM CLEMENTINA CABAN : 1950 73 years Study Date: 03/10/2024 9:21:22 AM Gender: F BP: 135/75 mmHg Height: 157.00 cm BSA: 2.00 m? ? ? Weight: 102.00 kg Tech: MSR Referring MD: BERE JOHNSON Site: [facility] Reading Location: Mobile Echo Patient Location: Outpatient. Procedure: 2D w/ Contrast, Color Doppler and Spectral Doppler. Indication for study: Persistent atrial fibrillation (HC); Chemotherapyfollow-up examination Cardiac Rhythm: Normal sinus.Study quality: Technically limited. Final Impressions: 1. Technically limited exam. 2. Normal left ventricular size, mildly increased wall thickness, normalglobal systolic function, calculated EF of 65 %. 3. Right ventricular cavity size is normal, global systolic RV functionis normal. 4. No significant valve disease detected. Chamber Sizes and Function Normal left ventricular size, mildly increased wall thickness, normalglobal systolic function, calculated EF of 65 %. No definite restingregional wall motion abnormality seen. Left atrial size is normal. Rightventricular cavity size is normal, global systolic RV function is normal.The right atrium is not well visualized. The pulmonary artery is not wellvisualized. The sinus of Valsalva is normal sized. The ascending aorta isnormal sized. Valves, RV Pressures and Diastolic Function The aortic valve is normal in structure and trileaflet, no stenosis and noregurgitation. The mitral valve is normal in structure, no mitralregurgitation. Spectral Doppler shows Grade 1 pattern of LV diastolicfilling. The tricuspid valve is normal in structure. Tricuspidregurgitation is trace regurgitation. The tricuspid regurgitant velocityis 1.7 m/s, the estimated right ventricular systolic pressure is 11 mmHgplus right atrial pressure. The pulmonic valve is not well visualized.Unable to determine pulmonary regurgitation. Masses, Effusion, Shunts There is no pericardial effusion. The inferior vena cava is not wellvisualized, respiratory size variation not well visualized. No left toright shunting was detected by limited color flow Doppler interrogation ofthe interatrial septum. MEASUREMENTS AND CALCULATIONS 2-D Measurements and LV Function: LVID (d) 4.3 cm Planimetered EF 65 % LVID (s) 2.5 cm LV FS% (2D) 41 % IVS (d) 1.2 cm LVOT diameter 2.1 cm LVPW (d) 1.2 cm HR 62 bpm Ao Sinus 2.8 cm Asc Ao 3.7 cm Diastology: Mitral Tissue Doppler E Peak 0.5 m/s e', Septum 0.07 m/s A Peak 0.7 m/s e', Lateral 0.08 m/s E/A 0.7 E/e' Average 6.35 DT 220 msec Mitral Valve: MVA 3.4 cm? ? ? MV P 1/2 64 msec Tricuspid Valve and estimated PA pressures: TR Vmax 1.7 m/s TR maxG 11 mmHg Contrast documentation: 6ml ml diluted Definity, lot #[id number], [facility]#[id number] was administered peripherally to enhance visualization of allleft ventricular segments. . This study was interpreted by an [facility] accredited facility. Final Bere Johnson MD ECHO ORD * XR MAMMO ELIZABETH BILAT SCREEN (12/21/2022 9:19 AM CDT) Anatomical Region Laterality Modality BREASTS, Breast Left, Breast Right Bilateral Mammography Impressions 12/21/2022 4:06 PM CDT ??There is no radiographic evidence for malignancy. ??Recommend annual mammograms. MAMMOGRAM ASSESSMENT: ??ACR 1 Negative PATIENTS: You will also receive a letter with your examination results in an easy to read format. ??If you have questions about your results, please contact your referring provider. Narrative 12/21/2022 4:06 PM CDT For Patients: As a result of the Century Cures Act, medical imaging exams and procedure reports are released immediately into your electronic medical record. You may view this report before your referring provider. If you have questions, please contact your health care provider. XR MAMMO ELIZABETH BILAT SCREEN [[id number]] CLINICAL HISTORY: ??This is an asymptomatic 72 y.o. patient. INDICATION FOR EXAM: Mammogram Screening. TECHNIQUE: CC & MLO views were obtained. ??This study was evaluated with the assistance of Computer-Aided Detection. Breast Tomosynthesis was used in interpretation. COMPARISON FILM: [facility] FINDINGS: ??The breasts have scattered areas of fibroglandular density. There are no dominant masses, suspicious micro calcifications or areas of architectural distortion. Destiney Greenberg DO MAMMO * ANTI HCV (02/17/2021 1:52 PM CDT) HEPATITIS C ANTIBODY Non-React juan a Non-React juan a 02/18/2021 12:15 AM CDT [facility] [employer] [facility] Comment:Antibodies to HCV no t detected; does not exclude the possibility of exposure to HCV. Blood BLOOD SPECIMEN / Unknown Venipuncture / Unknown 02/17/2021 1:52 PM CDT 02/17/2021 1:56 PM CDT Destiney Greenberg DO SEND OUTS [facility] [address] [place] [address], [place] * LIPID PANEL W REFLEX MEASURED LDL (11/21/2019 9:40 AM INSIDE WIREMAN) CHOLESTEROL,TOTAL 161 100 - 199 mg/dL 11/21/2019 6:35 PM INSIDE WIREMAN [facility] TRIGLYCERIDES 94 <150 mg/dL 11/21/2019 6:35 PM INSIDE WIREMAN [facility] HDL CHOLESTEROL 57 >40 mg/dL 0 6:35 PM INSIDE WIREMAN [facility] NON-HDL CHOLESTEROL 104 <145 mg/dl 11/21/2019 6:35 PM INSIDE WIREMAN [facility] CHOL/HDL RATIO 2.82 <4.50 11/21/2019 6:35 PM INSIDE WIREMAN [facility] LDL CHOLESTEROL 85 <=130 mg/dL 11/21/2019 6:35 PM INSIDE WIREMAN [facility] PROVIDER ORDERED STATUS RANDOM 11/21/2019 6:35 PM INSIDE WIREMAN [facility] Blood BLOOD SPECIMEN / Unknown Venipuncture / Unknown 11/21/2019 9:40 AM INSIDE WIREMAN 11/21/2019 9:50 AM INSIDE WIREMAN Pato Bingham MD CHEMISTRY [facility] [address] [place] [address], [place] * COLONOSCOPY (07/05/2015 8:01 AM CDT) 07/05/2015 8:01 AM CDT Narrative 07/05/2015 8:01 AM CDT Surgery & Outpatient Services Patient Name: Clementinajemal Caban ? Procedure Date: 07/05/2015 ? Gender: Female ? Date of : 1950 Admit Type: Ambulatory ? Procedure: ?Colonoscopy Proceduralist: ?Be Leger MD Referring MD: ? Praneeth Venegas MD Indications/Pre-Op Diagnosis: High risk colon cancer surveillance: Personal ?history of adenoma (10 mm or greater in size) Medications: ?Fentanyl 150 micrograms IV, Midazolam 7 mg IV, ?Zofran 4 mg IV, See the other procedure note ?for documentation of the administered ?medications ? Procedure Description: ? The patient had risks, benefits and alternatives explained to and gave ? informed consent. The patient had a stable cardiopulmonary status and ? judged an adequate candidate for conscious sedation. ? The colonoscope was passed through the anus and advanced to the cecum, ? identified by appendiceal orifice and ileocecal valve. The colonoscopy ? was performed without difficulty. The patient tolerated the procedure ? well. The quality of the bowel preparation was good. ? Complications: ?No immediate complications. Estimated Blood Loss & Specimen: ? Estimated blood loss: none. ? Specimen collected: None ? Findings: ? The perianal and digital rectal examinations were normal. Pertinent ? negatives include normal sphincter tone and no palpable rectal lesions. ? The entire examined colon appeared normal on direct and retroflexion ? views. ? Impressions/Post-Op Diagnosis: ? - The entire examined colon is normal on direct and retroflexion views. ? - No specimens collected. ? Recommendation: ? - Repeat colonoscopy in 5 years for surveillance. ? Be Leger MD 07/05/2015 8:56:39 AM This report has been signed electronically. Note Initiated On: 07/05/2015 8:01 AM Procedure Note Be Leger MD - 07/05/2015 8:56 AM CDT Surgery & Outpatient Services Patient Name: Clementina Caban Procedure Date: 07/05/2015 Gender: Female Date of : 1950 Admit Type: Ambulatory Procedure: Colonoscopy Proceduralist: Be Leger MD Referring MD: Praneeth Venegas MD Indications/Pre-Op Diagnosis: High risk colon cancer surveillance:Personal history of adenoma (10 mm or greater insize) Medications: Fentanyl 150 micrograms IV, Midazolam 7 mgIV, Zofran 4 mg IV, See the other procedure note for documentation of the administered medications Procedure Description: The patient had risks, benefits and alternatives explained to andgave informed consent. The patient had a stable cardiopulmonary status and judged an adequate candidate for conscious sedation. The colonoscope was passed through the anus and advanced to thececum, identified by appendiceal orifice and ileocecal valve. Thecolonoscopy was performed without difficulty. The patient tolerated the procedure well. The quality of the bowel preparation was good. Complications: No immediate complications. Estimated Blood Loss & Specimen: Estimated blood loss: none. Specimen collected: None Findings: The perianal and digital rectal examinations were normal. Pertinent negatives include normal sphincter tone and no palpable rectallesions. The entire examined colon appeared normal on direct and retroflexion views. Impressions/Post-Op Diagnosis: - The entire examined colon is normal on direct and retroflexionviews. - No specimens collected. Recommendation: - Repeat colonoscopy in 5 years for surveillance. Be Leger MD 07/05/2015 8:56:39 AM This report has been signed electronically. Note Initiated On: 07/05/2015 8:01 AM Be Leger MD PROCEDURE ORD * XR DEXA BONE DENSITY 2 SITES (11/04/2009 3:40 PM INSIDE WIREMAN) Anatomical Region Laterality Modality Spine, HIPS, HIPL, HIPR Other 11/04/2009 3:40 PM INSIDE WIREMAN Narrative 11/04/2009 3:46 PM INSIDE WIREMAN [facility] Bone Density Report Hologic Sibley C scanner Results: The study is a technically valid scan Location T Score Z score AP Spine -1.3 0.0 Left Femur 0.4 1.3 Right Femur 0.1 1.0 DIAGNOSIS BY WORLD HEALTH ORGANIZATION GUIDELINES ??OSTEOPENIA (LOW BONE MINERAL DENSITY) A new tool has been developed which may be very helpful for your patients. It is the WHO fracture risk assessment tool and it calculates the 10 year probability of fracture. This is for patients who are not being treated, to help in the decision of when to treat. (WHO suggest treatment if 10 year probability of major osteoporotic fracture exceeds 10% of if hip fracture probability exceeds 3%). More information and the calculation tool can be found at this website: http://www.shef.ac.uk.FRAX/ Please note: If Z score is less than -2.0, consider investigation for secondary cause of bone mineral loss. Follow up scans recommended at two year intervals [facility] C Scanner Provider: Rubi Age: 58 yrs Weight: 175 lbs ? Height: 63.2 inches ? Height at age 25: 65 inches INFORMATION PROVIDED BY PATIENT: *Non-Modifiable Risks Ethnicity: *Potentially Modifiable Risks Estrogen deficiency. Low calcium intake. Inadequate Vitamin D Current cigarette smoking. Inadequate physical activity. Procedure Note Alen Mosley R - 11/04/2009 [facility] Bone Density Report Hologic Sibley C scanner Results: The study is a technically valid scan Location T Score Z score AP Spine -1.3 0.0 Left Femur 0.4 1.3 Right Femur 0.1 1.0 DIAGNOSIS BY WORLD HEALTH ORGANIZATION GUIDELINES OSTEOPENIA (LOW BONE MINERAL DENSITY) A new tool has been developed which may be very helpful for your patients.It is the WHO fracture risk assessment tool and it calculates the 10 yearprobability of fracture. This is for patients who are not being treated,to help in the decision of when to treat. (WHO suggest treatment if 10year probability of major osteoporotic fracture exceeds 10% of if hipfracture probability exceeds 3%). More information and the calculationtool can be found at this website: http://www.shef.ac.uk.FRAX/ Please note: If Z score is less than -2.0, consider investigation forsecondary cause of bone mineral loss. Follow up scans recommended at two year intervals Hologic Sibley C Scanner Provider: Rubi Age: 58 yrs Weight: 175 lbs Height: 63.2 inches Height at age 25: 65 inches INFORMATION PROVIDED BY PATIENT: *Non-Modifiable Risks Ethnicity: *Potentially Modifiable Risks Estrogen deficiency. Low calcium intake. Inadequate Vitamin D Current cigarette smoking. Inadequate physical activity. Praneeth DURANT from Last 3 Months or Most Recently Relevant to Health Maintenance Advance Directives * Full Code (Latest Code Status on File) Date Activated Date Inactivated Comments 07/05/2015 7:04 AM 07/05/2015 12:25 PM * Full Code Date Activated Date Inactivated Comments 11/15/2009 7:09 AM 11/15/2009 12:31 PM Care Teams Asbestos Siding Mechanic Relationship Specialty Start Date End Date Destiney Greenberg [place] [address] PCP - General Internal Medicine 02/07/21
--- OUTSIDE RECORDS SUMMARY | 2024-04-15 10:28 | XMS_ITS ---
Author Organization [facility] Address [address] [place] [address] Care Team Providers Care Solid Waste Technician Name Role Phone Unavailable Unavailable Unavailable Surgery Details Not on file Complications Check Surgery Details section. Procedure Estimated Blood Loss Check Surgery Details section. Procedure Findings Check Surgery Details section. Procedure Specimens Taken Check Surgery Details section.
== END 2024-04-12 13:15 | disposition home or self-care (01) ==
LOC: NFLDREF 04-15 10:26
PROVIDERS: PCP Internal Medicine; Referring Provider Internal Medicine; Visit Provider Nurse Practitioner Family
DX: N39.0 Urinary tract infection, site not specified (principal); R39.9 Unspecified symptoms and signs involving the genitourinary system; A49.9 Bacterial infection, unspecified
CPT/HCPCS: 87086; 87186

== ENCOUNTER 2024-07-12 12:56 | Outpatient (CLI) | payer MEDICARE, OTHER, SELFPAY ==
--- OUTSIDE RECORDS SUMMARY | 2024-07-12 12:58 | XMS_ITS | Clinical Summary ---
Author Organization [employer] [facility] [employer] Address [place], [place] [address] Care Team Providers Care Hat Block Bench Hand Name Role Phone Destiney Greenberg DO Primary Care Provider [phone] Allergies Active Allergy Reactions Criticality Noted Date [...] atrial fibrillation 11/06/2017 Advanced directives, counseling/discussion 11/05 Overview (01/20/2022): Will check for copy Hyperlipidemia with target LDL less than 130 Overview (01/20/2022): Diagnosis updated by automated process. Provider to review and confirm. HTN, goal below 140/90 02/25/2015 Seasonal depression 02/25/2015 Tachycardia 02/25/2015 Hypothyroidism 11/10/2007 Overview (01/20/2022): 01/24/19 - mCi I-131 ablation of thyroid [...] Encounters Date Type Department Care Team Description 06/23/2024 Refill [facility] [address] [place] [phone] Lani Laird, RESIDENTIAL FRAMING CARPENTER Refill Request (cpap rx) from Last 3 Months Immunizations Name Administration [...] Procedure Name Priority Date/Time Associated Diagnosis Comments XR MAMMO ELIZABETH BILAT SCREEN Routine 12/21/2022 9:19 AM CDT Visit for screening mammogram ANTI HCV Routine 02/17/2021 1:52 PM CDT Need for hepatitis C screening test LIPID PANEL W REFLEX MEASURED LDL Routine 11/21/2019 9:40 AM TAXI TRUCK DRIVER Hyperlipidemia, unspecified hyperlipidemia type COLONOSCOPY 07/05/2015 8:01 AM CDT XR DXA BONE DENSITY 2 SITES AXIAL Routine 11/04/2009 3:40 PM TAXI TRUCK DRIVER Screening from Last 3 Months or Most Recently Relevant to Health Maintenance Results * XR MAMMO ELIZABETH BILAT SCREEN (12/21/2022 [...] care provider. XR MAMMO ELIZABETH BILAT SCREEN [[id number]] CLINICAL HISTORY: ??This is an asymptomatic 72 y.o. patient. INDICATION FOR EXAM: Mammogram Screening. TECHNIQUE: CC & MLO views were obtained. ??This study was evaluated with the assistance of Computer-Aided Detection. Breast Tomosynthesis was used in interpretation. COMPARISON FILM: Yes 12[facility]16[facility]21 [facility] FINDINGS: ??The breasts have scattered areas of fibroglandular density. There are no dominant masses, suspicious micro calcifications or areas of architectural distortion. Destiney Vanna Navarroarmando DO MAMMO * ANTI HCV (02/17/2021 1:52 PM CDT) HEPATITIS C ANTIBODY Non-React jua na Non-React juan a 02/18/2021 12:15 AM CDT [facility] Comment:Antibodies to HCV no t detected; does not exclude the possibility of exposure to HCV. Blood BLOOD SPECIMEN / Unknown Venipuncture / Unknown 02/17/2021 1:52 PM CDT 02/17/2021 1:56 PM CDT Destiney Greenberg SEND OUTS Performing Organization Address City/[facility]/ZIP Co de Phone Number [facility] [address] [place] [address], [place] * LIPID PANEL W REFLEX MEASURED LDL (11/21/2019 9:40 AM TAXI TRUCK DRIVER) CHOLESTEROL,TOTAL 161 100 - 199 mg/dL 11/21/2019 6:35 PM TAXI TRUCK DRIVER [facility] TRIGLYCERIDES 94 <150 mg/dL 11/21/2019 6:35 PM TAXI TRUCK DRIVER [facility] HDL CHOLESTEROL 57 >40 mg/dL 0 6:35 PM TAXI TRUCK DRIVER [facility] NON-HDL CHOLESTEROL 104 <145 mg/dl 11/21/2019 6:35 PM TAXI TRUCK DRIVER [facility] CHOL/HDL RATIO 2.82 <4.50 11/21/2019 6:35 PM TAXI TRUCK DRIVER [facility] LDL CHOLESTEROL 85 <=130 mg/dL 11/21/2019 6:35 PM TAXI TRUCK DRIVER [facility] PROVIDER ORDERED STATUS RANDOM 11/21/2019 6:35 PM TAXI TRUCK DRIVER [facility] Blood BLOOD SPECIMEN / Unknown Venipuncture / Unknown 11/21/2019 9:40 AM TAXI TRUCK DRIVER 11/21/2019 9:50 AM TAXI TRUCK DRIVER Pato Bingham MD CHEMISTRY [facility] [address] [place] [address], [place] * COLONOSCOPY (07/05/2015 8:01 AM CDT) 07/05/2015 8:01 AM CDT Narrative 07/05/2015 8:01 AM CDT [facility] Patient Name: Clementina Mooney ? Procedure Date: 07/05/2015 ? Gender: Female [...] Surgery & Outpatient Services Patient Name: Clementina Mooney Procedure Date: 07/05/2015 Gender: Female Date of [...] BONE DENSITY 2 SITES (11/04/2009 3:40 PM TAXI TRUCK DRIVER) Anatomical Region Laterality Modality Spine, HIPS, HIPL, HIPR Other 11/04/2009 3:40 PM TAXI TRUCK DRIVER Narrative 11/04/2009 3:46 PM TAXI TRUCK DRIVER [facility] Bone Density Report [employer] [place] C scanner Results: The study is a [...] up scans recommended at two year intervals [employer] [place] C Scanner Provider: Rubi Age: 58 yrs Weight: 175 lbs ? Height: 63.2 inches ? Height at age 25: 65 inches INFORMATION PROVIDED BY PATIENT: *Non-Modifiable Risks Ethnicity: *Potentially Modifiable Risks Estrogen deficiency. Low calcium intake. Inadequate Vitamin D Current cigarette smoking. Inadequate physical activity. Procedure Note Alen Mosley - 11/04/2009 [facility] Bone Density Report [employer] [place] C scanner Results: The study is a [...] up scans recommended at two year intervals [employer] [place] C Scanner Provider: Rubi Age: 58 yrs Weight: 175 lbs Height: 63.2 inches Height at age 25: 65 inches INFORMATION PROVIDED BY PATIENT: *Non-Modifiable Risks Ethnicity: *Potentially Modifiable Risks Estrogen deficiency. Low calcium intake. Inadequate Vitamin D Current cigarette smoking. Inadequate physical activity. Praneeth Venegas MD DEXA from Last 3 Months or Most Recently Relevant to Health Maintenance Advance Directives * Full Code (Latest Code Status on File) Date Activated Date Inactivated Comments 07/05/2015 7:04 AM 07/05/2015 12:25 PM * Full Code Date Activated Date Inactivated Comments 11/15/2009 7:09 AM 11/15/2009 12:31 PM Care Teams Hat Block Bench Hand Relationship Specialty Start Date End Date Destiney [place] [address] PCP - General Internal Medicine 02/07/21
--- NOTE | 2024-07-12 13:00 | CRLHL7_ITS ---
For Patients: As a result of the Century Cures Act, medical imaging exams and procedure reports are released immediately into your electronic medical record. You may view this report before your referring provider. If you have questions, please contact your health care provider. DXA BONE MINERAL DENSITY STUDY Reason for exam: On Letrazole for breast cancer. Current height (in): 63. Weight (lb): 250. Menopause age: 35. Ethnicity: White. 1. Have you had a previous hip or vertebral fracture? No. 2. Have you had any fractures during your adult life which did not result from significant trauma (e.g., auto accident)? No. 3. Did either of your parents have a hip fracture? No. 4. Do you smoke? No. 5. Have you ever taken Glucocorticoids? No. 6. Do you have rheumatoid arthritis? No. 7. Do you have secondary osteoporosis? No. 8. Do you drink 3 or more alcoholic drinks per day? No. 9. Are you being treated for osteoporosis? No. 10. Have you ever taken any of the following medications: Actonel, Evista, Fosamax, Miacalcin, Reclast, Boniva, Forteo, HRT (i.e. estrogen/hormone therapy), Protelos, Prolia, Vitamin D, Calcium, other ??? please specify. ANSWER: Yes, vitamin D, calcium. 11. Do you have any of the following medical conditions: Anorexia or bulimia, asthma or emphysema, end stage renal disease, hyperparathyroidism, any seizure disorders, cancer, inflammatory bowel diseases, hysterectomy, other ??? please specify. ANSWER: Yes, cancer, hysterectomy. 12. What was your maximum height (inches)? 64. 13. Do you perform weight bearing exercise regularly? No. 14. Do you regularly consume dairy products? Yes. 15. Do you drink caffeinated beverages? Yes. 16. At what age did your period start? 12. 17. Are you premenopausal? No. 18. How many full term pregnancies have you had? 1. 19. Have you ever missed your period for more than 6 months in a row (not including or menopause)? No. TECHNIQUE: Bone mineral density study was performed using the [employer]. FINDINGS: The results of the study expressed as bone mineral density (BMD) are as follows: Lumbar spine L1 to L3: BMD: 0.955 g/cm2. T-score: -0.6. Z-score: 1.7. Neck Left: BMD: 0.739 g/cm2. T-score: -1.0. Z-score: 1.0. Right: BMD: 0.837 g/cm2. T-score: -0.1. Z-score: 1.9. Total Left: BMD: 0.955 g/cm2. T-score: 0.1. Z-score: 1.8. Right: BMD: 0.940 g/cm2. T-score: -0.0. Z-score: 1.7. IMPRESSION: Normal bone density. *Comparison exams done prior to 03/2020 were performed on different unit, Numerous. COMPARISON: Compared with scan of 08/27/2022, the bone mineral density has decreased by 0.8 percent at the spine and decreased by 2.8 percent at the hip. Yfn Ball M.D. Diagnostic Radiologist [email or web address] CARSON/julianna / bM/Dictated by: Yfn Ball MD @ 07/13/2024 12:54:00 PM (Electronically Signed)
== END 2024-07-12 12:57 | disposition home or self-care (01) ==
LOC: RAD 12:56
PROVIDERS: PCP Internal Medicine; Visit Provider Internal Medicine Hematology & Oncology
DX: N95.1 Menopausal and female climacteric states (principal); Z78.0 Asymptomatic menopausal state
CPT/HCPCS: 77080

== ENCOUNTER 2024-07-20 08:58 | Outpatient (RCR) | payer MEDICARE, OTHER, SELFPAY ==
--- NOTE | 2024-06-29 12:05 | PC.NURSE ---
Pt called today to make sure that the breast navigator team got her message about needing more refills on her Letrozole through [facility]. Pt has enough of her current script at this time but wanted to make sure that there were more refills sent for her next refill. Clementina left a message on the NN line but she said something seemed off and she thought maybe the message didn't go through. Will pass this along to the Breast NN team. Clementina then went on to share her gratitude for the [facility]. She had a wonderful experience and was happy to be able to share with this senior writer. Supportive listening provided.
== END 2025-01-16 23:59 | disposition home or self-care (01) ==
LOC: CCIC 08:58
PROVIDERS: PCP Internal Medicine; Visit Provider Internal Medicine Hematology & Oncology
DX: C50.912 Malignant neoplasm of unspecified site of left female breast (principal); Z17.0 Estrogen receptor positive status [ER+]; R91.8 Other nonspecific abnormal finding of lung field; Z79.811 Long term (current) use of aromatase inhibitors; Z87.891 Personal history of nicotine dependence; Z85.42 Personal history of malignant neoplasm of other parts of uterus; Z80.0 Family history of malignant neoplasm of digestive organs; Z80.49 Family history of malignant neoplasm of other genital organs
CPT/HCPCS: 99214; G0463

== ENCOUNTER 2024-08-17 09:45 | Outpatient (CLI) | payer MEDICARE, OTHER, SELFPAY ==
--- OUTSIDE RECORDS SUMMARY | 2024-08-17 09:48 | XMS_ITS | Clinical Summary ---
Author Organization [employer] [facility] [employer] [facility] Address [place], [place] [address] Care Team Providers Care Rn Womens Health Name Role Phone Destiney Greenberg DO Primary Care Provider [phone] Allergies Active Allergy Reactions Criticality Noted Date [...] and other (A7044). 1 Each 02/16/2024 Active CPAPIndications:BUFFY (obstructive sleep apnea) CPAP (E0601) machine for home use at pressure: 5-16 cmw , Choice of mask (A7030 or A7034) w/full face cushion (A7031) x1/mo, nasal cushion (A7032) x2/mo, or nasal pillows (A7033) x 2/mo; Length of Need: 99 months; Frequency of use: Daily 1 Each 6 06/23/2024 Active Active Problems Problem Noted Date Diagnosed [...] 02/25/2015 Hypothyroidism 11/10/2007 Overview (01/20/2022): 01/24/19 - 15 mCi I-131 ablation of [...] Encounters Date Type Department Care Team Description 07/20/2024 Transcribe Orders [facility] [address] [place] [address] Romina Boles PA-C 07/13/2024 Telephone [facility] [address] [place] [address] Lani Laird, TIRE FIXER PT. stated, please call ELIZABETH. 06/23/2024 Refill [facility] [address] [place] [address] Lani Laird, TIRE FIXER Refill Request (cpap rx) from Last 3 [...] Care Team (Late st Contact Info) Description 10/26/2024 3:30 PM MAINSPRING STRIP INSPECTOR Phone Office Visit [facility] [address] [place] [address] Mariajose Pool, MS, [facility] [address], [place] [address] Health Maintenance Due Date Last Done Comments [...] REFLEX MEASURED LDL Routine 11/21/2019 9:40 AM MAINSPRING STRIP INSPECTOR Hyperlipidemia, unspecified hyperlipidemia type COLONOSCOPY 07/05/2015 8:01 AM CDT XR DXA BONE DENSITY 2 SITES AXIAL Routine 11/04/2009 3:40 PM MAINSPRING STRIP INSPECTOR Screening from Last 3 Months or Most [...] care provider. XR MAMMO ELIZABETH BILAT SCREEN [[id number]] CLINICAL HISTORY: ??This is an asymptomatic 72 y.o. patient. INDICATION FOR EXAM: Mammogram Screening. TECHNIQUE: CC & MLO views were obtained. ??This study was evaluated with the assistance of Computer-Aided Detection. Breast Tomosynthesis was used in interpretation. COMPARISON FILM: Yes 12/16/21 [facility] 07/22/20 [facility] FINDINGS: ??The breasts have scattered areas of fibroglandular density. There are no dominant masses, suspicious micro calcifications or areas of architectural distortion. Destiney Greenberg DO MAMMO * ANTI HCV (02/17/2021 1:52 PM CDT) HEPATITIS C ANTIBODY Non-React juan a Non-React juan a 02/18/2021 12:15 AM CDT [facility] Comment:Antibodies to HCV no t detected; does not exclude the possibility of exposure to HCV. Blood BLOOD SPECIMEN / Unknown Venipuncture / Unknown 02/17/2021 1:52 PM CDT 02/17/2021 1:56 PM CDT Destiney Greenberg DO [facility]S [facility] [address] [place] [address], * LIPID PANEL W REFLEX MEASURED LDL (11/21/2019 9:40 AM MAINSPRING STRIP INSPECTOR) CHOLESTEROL,TOTAL 161 100 - 199 mg/dL 11/21/2019 6:35 PM MAINSPRING STRIP INSPECTOR [facility] TRIGLYCERIDES 94 <150 mg/dL 11/21/2019 6:35 PM MAINSPRING STRIP INSPECTOR [facility] HDL CHOLESTEROL 57 >40 mg/dL 0 6:35 PM MAINSPRING STRIP INSPECTOR [facility] NON-HDL CHOLESTEROL 104 <145 mg/dl 11/21/2019 6:35 PM MAINSPRING STRIP INSPECTOR [facility] CHOL/HDL RATIO 2.82 <4.50 11/21/2019 6:35 PM MAINSPRING STRIP INSPECTOR [facility] LDL CHOLESTEROL 85 <=130 mg/dL 11/21/2019 6:35 PM MAINSPRING STRIP INSPECTOR [facility] PROVIDER ORDERED STATUS RANDOM 11/21/2019 6:35 PM MAINSPRING STRIP INSPECTOR [facility] Blood BLOOD SPECIMEN / Unknown Venipuncture / Unknown 11/21/2019 9:40 AM MAINSPRING STRIP INSPECTOR 11/21/2019 9:50 AM MAINSPRING STRIP INSPECTOR Pato Bingham MD CHEMISTRY [facility] [address] [place] [address], [place] * COLONOSCOPY (07/05/2015 8:01 AM CDT) [...] BONE DENSITY 2 SITES (11/04/2009 3:40 PM MAINSPRING STRIP INSPECTOR) Anatomical Region Laterality Modality Spine, HIPS, HIPL, HIPR Other 11/04/2009 3:40 PM MAINSPRING STRIP INSPECTOR Narrative 11/04/2009 3:46 PM MAINSPRING STRIP INSPECTOR [facility] Bone Density Report [email or web address] [place] C scanner Results: The study is a [...] up scans recommended at two year intervals [email or web address] [place] C Scanner Provider: Rubi Age: 58 yrs Weight: 175 lbs ? Height: 63.2 inches ? Height at age 25: 65 inches INFORMATION PROVIDED BY PATIENT: *Non-Modifiable Risks Ethnicity: *Potentially Modifiable Risks Estrogen deficiency. Low calcium intake. Inadequate Vitamin D Current cigarette smoking. Inadequate physical activity. Procedure Note Alen Mosley R - 11/04/2009 [facility] Bone Density Report [employer] [place] C scanner Results: The study is a [...] scans recommended at two year intervals [employer] [place] C Scanner Provider: Rubi Age: 58 yrs [...] 7:09 AM 11/15/2009 12:31 PM Care Teams Rn Womens Health Relationship Specialty Start Date End Date Destiney Greenberg [place] [address] PCP - General Internal Medicine 02/07/21
== END 2024-08-17 09:46 | disposition home or self-care (01) ==
PROVIDERS: PCP Internal Medicine; Visit Provider Internal Medicine
DX: E03.9 Hypothyroidism, unspecified (principal); E78.5 Hyperlipidemia, unspecified
CPT/HCPCS: 80053; 80061; 84439; 84443

== ENCOUNTER 2024-08-28 09:08 | Outpatient (CLI) | payer MEDICARE, OTHER, SELFPAY ==
--- OUTSIDE RECORDS SUMMARY | 2024-08-28 09:12 | XMS_ITS | Clinical Summary ---
Author Organization [employer] [facility] [employer] [facility] Address [place], [place] [address] Care Team Providers Care Fabrication Machine Operator Name Role Phone Destiney Greenberg DO Primary Care Provider [phone] Allergies Active Allergy Reactions Criticality Noted Date [...] Department Care Team Description 07/20/2024 Transcribe Orders [facility] [address] [place] [address] Romina Boles PA-C 07/13/2024 Telephone [facility] [address] [place] [address] Lani Laird, BOTTLE PACKING MACHINE CLEANER PT. stated, please call ELIZABETH. 06/23/2024 Refill [facility] [address] [place] [address] Lani Laird, BOTTLE PACKING MACHINE CLEANER Refill Request (cpap rx) from Last 3 [...] st Contact Info) Description 10/26/2024 3:30 PM INTEGRATION CONSULTANT Phone Office Visit [facility] [address] [place] [address] Mariajose Pool, MS, [facility] [address] [address] Health Maintenance Due Date Last Done Comments [...] REFLEX MEASURED LDL Routine 11/21/2019 9:40 AM INTEGRATION CONSULTANT Hyperlipidemia, unspecified hyperlipidemia type COLONOSCOPY 07/05/2015 8:01 AM CDT XR DXA BONE DENSITY 2 SITES AXIAL Routine 11/04/2009 3:40 PM INTEGRATION CONSULTANT Screening from Last 3 Months or Most [...] care provider. XR MAMMO ELIZABETH BILAT SCREEN [[id number]] CLINICAL HISTORY: ??This is an asymptomatic 72 y.o. patient. INDICATION FOR EXAM: Mammogram Screening. TECHNIQUE: CC & MLO views were obtained. ??This study was evaluated with the assistance of Computer-Aided Detection. Breast Tomosynthesis was used in interpretation. COMPARISON FILM: Yes 12/16/21 [facility] 07/22/20 [facility] FINDINGS: ??The breasts have scattered areas of fibroglandular density. There are no dominant masses, suspicious micro calcifications or areas of architectural distortion. Destiney Greenberg DO MAMMO * ANTI HCV (02/17/2021 1:52 PM CDT) HEPATITIS C ANTIBODY Non-React juan a Non-React juan a 02/18/2021 12:15 AM CDT [facility] Comment:Antibodies to HCV no t detected; does not exclude the possibility of exposure to HCV. Blood BLOOD SPECIMEN / Unknown Venipuncture / Unknown 02/17/2021 1:52 PM CDT 02/17/2021 1:56 PM CDT Destiney Greenberg DO [facility] [address] [place] [address], * LIPID PANEL W REFLEX MEASURED LDL (11/21/2019 9:40 AM INTEGRATION CONSULTANT) CHOLESTEROL,TOTAL 161 100 - 199 mg/dL 11/21/2019 6:35 PM INTEGRATION CONSULTANT [facility] TRIGLYCERIDES 94 <150 mg/dL 11/21/2019 6:35 PM INTEGRATION CONSULTANT [facility] HDL CHOLESTEROL 57 >40 mg/dL 0 6:35 PM INTEGRATION CONSULTANT [facility] NON-HDL CHOLESTEROL 104 <145 mg/dl 11/21/2019 6:35 PM INTEGRATION CONSULTANT [facility] CHOL/HDL RATIO 2.82 <4.50 11/21/2019 6:35 PM INTEGRATION CONSULTANT [facility] LDL CHOLESTEROL 85 <=130 mg/dL 11/21/2019 6:35 PM INTEGRATION CONSULTANT [facility] PROVIDER ORDERED STATUS RANDOM 11/21/2019 6:35 PM INTEGRATION CONSULTANT [facility] Blood BLOOD SPECIMEN / Unknown Venipuncture / Unknown 11/21/2019 9:40 AM INTEGRATION CONSULTANT 11/21/2019 9:50 AM INTEGRATION CONSULTANT Pato Bingham MD CHEMISTRY [facility] [address] [place] [address], [place] * COLONOSCOPY (07/05/2015 8:01 AM CDT) [...] BONE DENSITY 2 SITES (11/04/2009 3:40 PM INTEGRATION CONSULTANT) Anatomical Region Laterality Modality Spine, HIPS, HIPL, HIPR Other 11/04/2009 3:40 PM INTEGRATION CONSULTANT Narrative 11/04/2009 3:46 PM INTEGRATION CONSULTANT [facility] Bone Density Report [employer] [place] C scanner Results: The study is a [...] up scans recommended at two year intervals [employer] [place] C Scanner Provider: Rubi Age: 58 yrs Weight: 175 lbs ? Height: 63.2 inches ? Height at age 25: 65 inches INFORMATION PROVIDED BY PATIENT: *Non-Modifiable Risks Ethnicity: *Potentially Modifiable Risks Estrogen deficiency. Low calcium intake. Inadequate Vitamin D Current cigarette smoking. Inadequate physical activity. Procedure Note Alen Mosley R - 11/04/2009 [facility] Bone Density Report [employer] [place] C scanner Results: The study is a [...] scans recommended at two year intervals [employer] [place] C Scanner Provider: Rubi Age: 58 yrs [...] 7:09 AM 11/15/2009 12:31 PM Care Teams Fabrication Machine Operator Relationship Specialty Start Date End Date Destiney [place] [address] [place] [address] PCP - General Internal Medicine 02/07/21
--- NOTE | 2024-08-28 09:15 | CRLHL7_ITS ---
For Patients: As a result of the Century Cures Act, medical imaging exams and procedure reports are released immediately into your electronic medical record. You may view this report before your referring provider. If you have questions, please contact your health care provider. BILATERAL SCREENING MAMMOGRAM WITH COMPUTER-AIDED DETECTION AND TOMOSYNTHESIS TECHNIQUE: CC and MLO views were obtained. These mammographic images have been obtained using full-field digital technique. These mammographic images were interpreted with the benefit of computer-aided detection. Breast Tomosynthesis was used in this interpretation. COMPARISON FILM: 08/25/23. FINDINGS: There are scattered areas of fibroglandular density. IMPRESSION: There is no radiographic evidence for malignancy. ASSESSMENT: BI-RADS Category 2: Benign RECOMMENDATION: Routine screening mammogram in 1 year. A lay language report of this examination will be provided to the patient. Yfn Ball M.D. Diagnostic Radiologist [email or web address] SP/Dictated by: Yfn Ball MD @ 08/28/2024 10:29:00 AM (Electronically Signed)
== END 2024-08-28 09:09 | disposition home or self-care (01) ==
LOC: MAMMO 09:11
PROVIDERS: PCP Internal Medicine; Visit Provider Internal Medicine Hematology & Oncology
DX: Z12.31 Encounter for screening mammogram for malignant neoplasm of breast (principal)
CPT/HCPCS: 77063; 77067

== ENCOUNTER 2025-01-18 09:13 | Outpatient (CLI) | payer MEDICARE, SELFPAY | END 2025-01-18 09:14 | disposition home or self-care (01) | LOC: NFLDREF 09:13 | PROVIDERS: PCP Internal Medicine; Visit Provider Internal Medicine | DX: E03.9 Hypothyroidism, unspecified (principal) | CPT/HCPCS: 84443 ==

== ENCOUNTER 2025-02-15 12:57 | Outpatient (CLI) | payer MEDICARE, SELFPAY ==
--- NOTE | 2025-02-15 13:00 | CRLHL7_ITS ---
For Patients: As a result of the Century Cures Act, medical imaging exams and procedure reports are released immediately into your electronic medical record. You may view this report before your referring provider. If you have questions, please contact your health care provider. INDICATION: Light vaginal spotting COMPARISON: CT 09/05/2021 TECHNIQUE: 2D langford scale and color Doppler images were acquired of the pelvis using a transabdominal and transvaginal approach. FINDINGS: Postoperative changes of hysterectomy and bilateral oophorectomy. Postvoid bladder volume 44 cc. Bladder wall is somewhat trabeculated. Incidental calcification associated with the vaginal cuff which measures 2.6 cm. No pelvic fluid collection. No abnormal vascularity. IMPRESSION: Status post hysterectomy and bilateral oophorectomy. Incidental calcification associated with the vaginal cuff. Incomplete bladder voiding. Dictated by Yfn Ball MD @ 02/15/2025 4:09:53 PM (Electronically Signed)
== END 2025-02-15 12:58 | disposition home or self-care (01) ==
LOC: US 12:58
PROVIDERS: PCP Internal Medicine; Visit Provider Internal Medicine Hematology & Oncology
DX: N93.9 Abnormal uterine and vaginal bleeding, unspecified (principal); N89.8 Other specified noninflammatory disorders of vagina; N95.1 Menopausal and female climacteric states; C50.919 Malignant neoplasm of unspecified site of unspecified female breast
CPT/HCPCS: 76830; 76856

== ENCOUNTER 2025-02-26 10:37 | Outpatient (CLI) | payer MEDICARE, SELFPAY ==
--- NOTE | 2025-02-26 10:45 | CRLHL7_ITS ---
For Patients: As a result of the Century Cures Act, medical imaging exams and procedure reports are released immediately into your electronic medical record. You may view this report before your referring provider. If you have questions, please contact your health care provider. DIGITAL DIAGNOSTIC BILATERAL MAMMOGRAM USING TOMOSYNTHESIS AND COMPUTER-AIDED DETECTION LEFT BREAST ULTRASOUND CLINICAL HISTORY: LEFT breast pain. COMPARISON: 08/28/2024, 08/25/2023, 12/21/2022. TECHNIQUE: Digital BILATERAL mammogram in four projections with computer-aided detection. Tomosynthesis was used in this interpretation. Real-time ultrasound imaging of LEFT breast with imaging documentation. BREAST COMPOSITION: There are scattered areas of fibroglandular density. FINDINGS: 3D CC/MLO BILATERAL mammogram images submitted. Posttreatment changes LEFT breast. No suspicious masses or architectural distortion. Benign calcifications are present. Targeted LEFT breast ultrasound performed in the area of pain, 4 o`clock 10 cm from the nipple. Normal breast tissue is present. No fluid collection or mass. IMPRESSION: No suspicious findings. No evidence of malignancy. RECOMMENDATIONS: Clinical follow-up and routine screening mammography. A lay language report of this examination will be provided to the patient. BI-RADS Category 2: Benign Dictated by Yfn Ball MD @ 02/26/2025 11:40:25 AM jj/Dictated by: Yfn Ball MD @ 02/26/2025 11:40:00 AM (Electronically Signed)
--- NOTE | 2025-02-26 11:15 | CRLHL7_ITS ---
For Patients: As a result of the Cures Act, medical imaging exams and procedure reports are released immediately into your electronic medical record. You may view this report before your referring provider. If you have questions, please contact your health care provider. SEE DIGITAL DIAGNOSTIC BILATERAL MAMMOGRAM PERFORMED SAME DAY CRL:[email or web address] munoz/Dictated by: Yfn Ball MD @ 02/26/2025 11:40:00 AM (Electronically Signed)
== END 2025-02-26 10:38 | disposition home or self-care (01) ==
PROVIDERS: PCP Internal Medicine; Visit Provider Internal Medicine Hematology & Oncology
DX: N64.4 Mastodynia (principal)
CPT/HCPCS: 76642; 77066; G0279

== ENCOUNTER 2025-03-01 14:53 | Outpatient (CLI) | payer MEDICARE, SELFPAY | END 2025-03-01 14:54 | disposition home or self-care (01) | LOC: NFLDREF 03-07 18:23 | PROVIDERS: PCP Internal Medicine; Referring Provider Internal Medicine; Visit Provider Internal Medicine | DX: R31.9 Hematuria, unspecified (principal) | CPT/HCPCS: 87086 ==

== ENCOUNTER 2025-05-31 09:20 | Outpatient (RCR) | payer MEDICARE, SELFPAY ==
--- NOTE | 2025-03-01 13:08 | ONC.NURNOTE ---
Pt called reporting pink urine returned after 2 wks of normal voiding. She notes when she wipes it appears to be coming from urine or possibly vag; no pink tinge with wiping stool. Recent pelvic US came back normal. Pt notes that this is similar to her symptoms of UTI's last year however she's not having pain. Recommend she see a PCP to work up UTI; message sent to [facility] care team. Pt is hoping she can do urine testing without being seen if no availability to be seen. She recently saw [facility] 01/2025.
--- NOTE | 2025-03-07 14:06 | ONC.NURNOTE ---
Patient called with many questions about ongoing spotting. She describes is as intermittent and pink in color. She explained that her UA was unremarkable for a UTI and she is 100% confident that the bleeding is vaginal. She wonders what her next steps should be. We talked about the possibility of seeing a LABORATORY ADMINISTRATIVE DIRECTOR for an exam. Patient also has a follow up with Dr. Rizzo next week to discuss further. Patient states she plans to call the women's health team to schedule a consult with Dr. Sebastian.
== END 2025-08-11 23:59 | disposition home or self-care (01) ==
LOC: CCIC 09:20
PROVIDERS: PCP Internal Medicine; Visit Provider Internal Medicine Hematology & Oncology
DX: C50.912 Malignant neoplasm of unspecified site of left female breast (principal); Z17.0 Estrogen receptor positive status [ER+]
CPT/HCPCS: 99214; G0463